=== PATIENT | female | born 1955 | race Caucasian/White ===

== ENCOUNTER 2017-07-19 14:22 | Emergency (ER) | payer BC ==
--- OUTSIDE RECORDS SUMMARY | 2017-07-19 14:25 | XMS | Clinical Summary ---
:1955 Author Organization [facility] Address [address] [place] [address] Phone Care Team Providers Name Role Phone , Primary Care Provider Unavailable Allergies Not on File Current Medications Not on file Active Problems Not on file Social History Tobacco Use Types Packs/Day Years Used Date Never Assessed Sex Assigned at Date Recorded Not on file Last Filed Vital Signs Not on file Plan of Treatment Not on file Results Not on filefrom Last 3 Months
[2017-07-19 16:32] LABS: #Basophils 0.1 thou/uL (0.0-0.2); #Eosinphils 0.2 thou/uL (0.0-0.7); #Lymphocytes 2.4 thou/uL (1.20-3.40); #Monocytes 0.6 thou/uL (0.11-0.59); #Neutrophils 7.1 thou/uL (1.40-6.50); %Basophils 0.5 % (0.0-1.0); %Eosinophils 1.7 % (0.0-10.0); %Lymphocytes 23.4 % (21.0-51.0); %Monocytes 6.1 % (0.0-10.0); Hematocrit 47.8 % (36.0-47.0); Mean Platelet Volume 8.1 fL (7.4-10.4); White Blood Cell (WBC) Count 10.4 thou/uL (4.8-10.8)
[2017-07-19] MEDS ORDERED: ISOVUE-370 76%-LOCM 1 ML ONE (16:47)
[2017-07-19 16:53] LABS: ALT (SGPT) 17 U/L (8-55); AST (SGOT) 24 U/L (5-34); Alkaline Phosphatase 110 U/L (40-150); Anion Gap 16 mmol/L (10-20); BUN (Urea Nitrogen) 13 mg/dL (9.8-20.1); Bilirubin, Total 0.9 mg/dL (0.2-1.2); Calc. Creatinine Clearance 0 mL/min (70-130); Calcium 9.9 mg/dL (7.8-10.44); Carbon Dioxide 27 mmol/L (22-29); Chloride 102 mmol/L (98-107); Estimated GFR-MDRD 74; Globulin 3.9 g/dL (2.4-3.5)
--- NOTE | 2017-07-19 19:21 | CT ---
CT OF THE FACE WITH IV CONTRAST: Indication: Left sided facial pain, concern for facial infection. Comparison: CT of the facial bones dated 02-02-14. FINDINGS: There is mild generalized cerebral atrophy. Visualized intracranial contents appear within normal li mits. There is a stable remote appearing lacunar infarct involving the left and right cerebellar hem ispheres. No drainable fluid collection is evident. The orbits are preserved. [employer] space, parotid, and s ubmandibular glands are normal appearing. There are moderate calcifications involving the right henry tid bulb. No enlarged lymph nodes are evident. Peripharyngeal fat is preserved. Paranasal sinuses ar e clear. Mastoid air cells appear clear. The previously seen nasal bone fracture demonstrates interv al healing. IMPRESSION: 1. No abnormality demonstrated. 2. Interval healing of the previously seen nasal bone fracture. POS: [facility]
== END 2017-07-19 18:10 | disposition home or self-care (01) ==
LOC: ERS 14:22
DX: R51 Headache (principal); R22.0 Localized swelling, mass and lump, head; I10 Essential (primary) hypertension; I25.10 Atherosclerotic heart disease of native coronary artery without angina pectoris; I25.2 Old myocardial infarction; E03.9 Hypothyroidism, unspecified; Z86.73 Personal history of transient ischemic attack (TIA), and cerebral infarction without residual deficits; Z79.899 Other long term (current) drug therapy
CPT/HCPCS: 70487; 80053; 85025

== ENCOUNTER 2017-07-23 08:17 | Outpatient (CLI) | payer BC ==
--- OUTSIDE RECORDS SUMMARY | 2017-07-23 08:19 | XMS | Clinical Summary ---
:1955 Author Organization [facility] Address [address] [place] [address] Phone Care Team Providers Name Role Phone [...]
--- NOTE | 2017-07-23 09:21 | RAD ---
3 VIEWS LUMBOSACRAL SPINE: Date: 07/23/17 COMPARISON: MRI lumbar spine dated 01/28/16. HISTORY: Lumbar spondylosis. FINDINGS: Lateral views of the lumbosacral spine were performed in neutral, flexion, and extension. There is v ertebroplasty cement in the L4 vertebral body. There is Grade I retrolisthesis of L4 on L5. The inte rvertebral discs are narrowed and moderate osteophytes are seen throughout the lumbar spine. Alignme nt is unchanged with flexion and extension. IMPRESSION: Moderate degenerative changes of the lumbar spine with unchanged alignment with bending. POS: [facility]
--- NOTE | 2017-07-23 10:36 | MRI ---
MRI LUMBAR SPINE WITHOUT CONTRAST: Date: 07/23/17 COMPARISON: 01/28/16, 06/21/13. TECHNIQUE: MRI lumbar spine is performed without intravenous Gadolinium administration. Multisequential, multip lanar imaging is performed. FINDINGS: There is an intrinsic T1 and T2 hypointensity at the L4 vertebral body level, similar to the prior e xamination suggesting stable vertebroplasty change. Remainder of the lumbar vertebra has appropriate T1 marrow signal intensity. Vertebral body height i s maintained. No fracture. No significant STIR hyperintensity to suggest vertebral body edema or lig amentous injury. 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 Symmetric signal intensity of the psoas m uscles. Conus medullaris terminates at the superior end plate of L1. The overall AP diameter of the central spinal canal is narrowed secondary to congenitally foreshorte maurice pedicles. T11-T12: Mild central canal stenosis. T12-L1: Minimal central canal stenosis. L1-L2: Stable loss of disc space height. There is a central/left subarticular disc protrusion, unchanged fr om the prior examination. There is stable mild central canal stenosis. Neural foramina are patent. L2-L3: There is stable loss of disc space height. There is generalized disc bulge with a central disc protr usion. There is moderate to severe central canal stenosis. Mild bilateral foraminal narrowing. L3-L4: There is stable minimal loss of vertebral body height. Generalized disc bulge, ligamentum flavum thi ckening, and facet hypertrophy result in mild to moderate central canal stenosis. Neural foramina ar e patent bilaterally. L4-L5: Generalized disc bulge, ligamentum flavum thickening, and facet hypertrophy result in mild central c anal stenosis. Minimal narrowing to both subarticular zones. Mass effect without obscuration of bila teral traversing L5 nerve roots. Mild to moderate right and mild left foraminal narrowing. L5-S1: Disc desiccation with moderate loss of disc space height. There is a generalized disc bulge with a l eft and right subarticular component. Mass effect and partial obscuration of bilateral traversing S1 nerve roots. Overall, there is mild central canal stenosis. Moderate right and left foraminal narro wing. IMPRESSION: Degenerative changes of the lumbar spine as above. POS: [facility]
== END 2017-07-23 08:18 | disposition home or self-care (01) ==
LOC: TBSIIMAG 08:17
PROVIDERS: ATTEND Anesthesiology Pain Medicine
DX: M47.816 Spondylosis without myelopathy or radiculopathy, lumbar region (principal)
CPT/HCPCS: 72100; 72148

== ENCOUNTER 2021-09-16 06:55 | Inpatient (IN) | payer OTHER ==
[2021-09-16] MEDS ORDERED: Ondansetron PF 4 MG/2 ML Vial ONE ×2 (07:24→09:08)
[2021-09-16] MEDS ORDERED: Morphine 4 MG/ML VIAL ONE ×2 (07:24→10:51)
[2021-09-16 08:21] LABS: #Basophils 0.1 thou/uL (0.0-0.2); #Eosinphils 0.1 thou/uL (0.0-0.7); #Lymphocytes 1.6 thou/uL (1.20-3.40); #Monocytes 1.1 thou/uL (0.11-0.59); #Neutrophils 11.4 thou/uL (1.40-6.50); %Basophils 0.4 % (0.0-1.0); %Eosinophils 0.7 % (0.0-10.0); %Lymphocytes 11.1 % (21.0-51.0); %Neutrophils 79.8 % (42.0-75.0); Hemoglobin 15.9 g/dL (12.0-16.0); Mean Corpuscular HGB CONC 30.5 g/dL (32.0-36.0); Mean Corpuscular Hemoglobin 29.7 pg (27.0-31.0); Mean Corpuscular Volume 97.2 fL (78.0-98.0); Platelet Count 412 thou/uL (130-400); RBC Distribution Width 12.8 % (11.5-14.5); Red Blood Cell (RBC) Count 5.35 mill/uL (4.20-5.40); White Blood Cell (WBC) Count 14.2 thou/uL (4.8-10.8)
[2021-09-16 08:36] LABS: ALT (SGPT) 9 U/L (8-55); AST (SGOT) 25 U/L (5-34); Albumin 2.8 g/dL (3.4-4.8); Alkaline Phosphatase 75 U/L (40-110); Anion Gap 19 mmol/L (10-20); BUN (Urea Nitrogen) 6 mg/dL (9.8-20.1); Bilirubin, Total 0.8 mg/dL (0.2-1.2); Calc. Creatinine Clearance 0 mL/min (70-130); Calcium 9.4 mg/dL (7.8-10.44); Carbon Dioxide 18 mmol/L (23-31); Chloride 103 mmol/L (98-107); Globulin 5.2 g/dL (2.4-3.5); Glucose 119 mg/dL (80-115); Lipase 8 U/L (8-78); Potassium 3.9 mmol/L (3.5-5.1); Sodium 136 mmol/L (136-145)
[2021-09-16 10:37] LABS: SARS-CoV-2 NAA Rapid Test Not Detected (NotDetected)
[2021-09-16] MEDS ORDERED: cefTRIAXone\\ROCEPHIN 2 GM VIAL ONE (10:51)
[2021-09-16] MEDS ORDERED: Iopamidol-370 76% 500 ML 1 ML ONE ×2 (10:53→10:55)
[2021-09-16 11:57] LABS: Lactic Acid 0.9 mmol/L (0.5-2.2)
[2021-09-16] MEDS ORDERED: Azithromycin 500 MG VIAL ONE (12:13)
[2021-09-16] MEDS ORDERED: Enoxaparin Sodium 100 MG/ML SYRINGE ONE (12:13)
[2021-09-16] MEDS ORDERED: FLU VACC QS2021-22(6MOS UP)/PF 60 MCG/0.5 ML SYRINGE IM ONE (15:30)
[2021-09-16] MEDS ORDERED: traMADol HCl 50 MG TAB PO PRN (20:14)
[2021-09-16] MEDS ORDERED: Ondansetron ODT 4 MG TAB PO PRN (20:15)
[2021-09-16] MEDS ORDERED: Acetaminophen 325 MG TAB PO PRN (20:15)
[2021-09-16] MEDS ORDERED: Senokot S 8.6-50 MG TAB PO PRN (20:15)
[2021-09-16] MEDS ORDERED: Ondansetron PF 4 MG/2 ML Vial IVP PRN (20:15)
[2021-09-16] MEDS ORDERED: Carvedilol 6.25 MG TAB PO SCH (21:00)
[2021-09-16] MEDS: Pregabalin 50 MG CAP PO SCH (21:04)
[2021-09-16] MEDS: Atorvastatin Calcium 40 MG TAB PO SCH (21:06)
[2021-09-16] MEDS: Morphine ER 15 MG TAB PO SCH (22:05)
[2021-09-16] MEDS ORDERED: Nitroglycerin 0.4 MG TAB (25 Tab Bottle) SL PRN (22:44)
[2021-09-16] MEDS ORDERED: Enoxaparin Sodium 100 MG/ML SYRINGE SC SCH (23:00)
[2021-09-16 23:28] LABS: Magnesium 1.4 mg/dL (1.6-2.6)
[2021-09-17] MEDS ORDERED: Magnesium Sulfate 4 GM in Sodium Chloride 0.9% 250 ML 250 ML IVPB SCH (01:00)
[2021-09-17 01:20] LABS: Troponin I Less than 0.010 ng/mL (< 0.028)
[2021-09-17 05:14] LABS: #Basophils 0.1 thou/uL (0.0-0.2); #Eosinphils 0.5 thou/uL (0.0-0.7); #Monocytes 1.2 thou/uL (0.11-0.59); #Neutrophils 4.9 thou/uL (1.40-6.50); %Basophils 0.6 % (0.0-1.0); %Eosinophils 4.9 % (0.0-10.0); %Monocytes 12.6 % (0.0-10.0); %Neutrophils 50.9 % (42.0-75.0); Hemoglobin 13.9 g/dL (12.0-16.0); Mean Corpuscular HGB CONC 31.6 g/dL (32.0-36.0); Mean Corpuscular Hemoglobin 30.2 pg (27.0-31.0); Mean Corpuscular Volume 95.5 fL (78.0-98.0); Mean Platelet Volume 9.2 fL (7.4-10.4); Platelet Count 403 thou/uL (130-400); RBC Distribution Width 12.7 % (11.5-14.5); Red Blood Cell (RBC) Count 4.61 mill/uL (4.20-5.40); White Blood Cell (WBC) Count 9.6 thou/uL (4.8-10.8)
[2021-09-17 05:33] LABS: Anion Gap 11 mmol/L (10-20); BUN (Urea Nitrogen) 6 mg/dL (9.8-20.1); Calc. Creatinine Clearance 127 mL/min (70-130); Carbon Dioxide 28 mmol/L (23-31); Chloride 102 mmol/L (98-107); Glucose 100 mg/dL (80-115); Potassium 3.4 mmol/L (3.5-5.1); Sodium 138 mmol/L (136-145)
[2021-09-17] MEDS: Morphine ER 15 MG TAB PO SCH ×3 (06:17→22:10)
[2021-09-17 06:32] LABS: Bilirubin Negative (Negative); Blood, Urine Negative (Negative); Clarity Clear (Clear); Glucose, Urine (Dipstick) Normal (Negative); Ketone, Urine Negative (Negative); Leukocyte 75 Leu/uL (Negative); Nitrite Negative (Negative); Protein, Urine (Dipstick) Negative (Neg-Trace); RBC/HPF 0-3 HPF (0-3); Specific Gravity, Urine 1.014 (1.002-1.036); Squamous Epithelial 0-3 HPF (0-3); Urobilinogen Normal mg/dL (Less than 2); pH, Urine 5.5 (5.0-9.0)
[2021-09-17] MEDS ORDERED: GUAIFENESIN SF SOLN 200 MG/10 ML UDCUP PO PRN (06:44)
[2021-09-17] MEDS ORDERED: Sodium Chloride 0.65% Nasal 44 ML BOT EA NARE PRN (06:44)
[2021-09-17] MEDS ORDERED: Cepastat Lozenges 1 LOZ PO PRN (06:44)
[2021-09-17] MEDS ORDERED: Calcium Carbonate 500 MG ChewTAB PO PRN (06:44)
[2021-09-17] MEDS ORDERED: Loperamide HCl 2 MG CAP PO PRN (06:44)
[2021-09-17] MEDS ORDERED: Loratadine 10 MG TAB PO PRN (06:44)
[2021-09-17] MEDS ORDERED: hydrALAZINE 20 MG/ML VIAL SLOW IVP PRN (06:44)
[2021-09-17] MEDS ORDERED: Hydrocerin (Eucerin) Cream 120 gm Jar TOP PRN (06:44)
[2021-09-17] MEDS ORDERED: Artificial Tear Sol 15 ML BOT EA EYE PRN (06:44)
[2021-09-17] MEDS ORDERED: Zolpidem Tartrate 5 MG TAB PO PRN (06:44)
[2021-09-17 06:54] LABS: Bacteria/HPF 1+ HPF (None Seen)
[2021-09-17] MEDS ORDERED: Potassium Chloride 20 MEQ TAB PO SCH (07:00)
[2021-09-17] MEDS: Enoxaparin Sodium 100 MG/ML SYRINGE SC SCH ×2 (08:45→20:46)
[2021-09-17] MEDS: Carvedilol 6.25 MG TAB PO SCH ×2 (08:46→17:55)
[2021-09-17] MEDS: Pregabalin 50 MG CAP PO SCH ×3 (08:46→20:45)
[2021-09-17] MEDS: Aspirin 81 mg Enteric Coated Tablet PO SCH (08:46)
[2021-09-17 10:03] VITALS: BMI 35.3
[2021-09-17] MEDS ORDERED: cefTRIAXone\\ROCEPHIN 1 GM in Sodium Chloride 0.9% 100 ML IVPB SCH (11:00)
[2021-09-17] MEDS: Atorvastatin Calcium 40 MG TAB PO SCH (20:46)
[2021-09-18 05:18] LABS: #Eosinphils 0.4 thou/uL (0.0-0.7); #Lymphocytes 2.5 thou/uL (1.20-3.40); #Neutrophils 3.8 thou/uL (1.40-6.50); %Basophils 0.2 % (0.0-1.0); %Eosinophils 5.5 % (0.0-10.0); %Lymphocytes 31.9 % (21.0-51.0); %Monocytes 12.9 % (0.0-10.0); %Neutrophils 49.6 % (42.0-75.0); Hemoglobin 13.3 g/dL (12.0-16.0); Mean Corpuscular HGB CONC 32.3 g/dL (32.0-36.0); Mean Platelet Volume 9.1 fL (7.4-10.4); Platelet Count 294 thou/uL (130-400); RBC Distribution Width 12.5 % (11.5-14.5); White Blood Cell (WBC) Count 7.7 thou/uL (4.8-10.8)
[2021-09-18 05:27] LABS: Anion Gap 10 mmol/L (10-20); BUN (Urea Nitrogen) 6 mg/dL (9.8-20.1); Calc. Creatinine Clearance 113 mL/min (70-130); Calcium 8.9 mg/dL (7.8-10.44); Carbon Dioxide 31 mmol/L (23-31); Chloride 102 mmol/L (98-107); Glucose 100 mg/dL (80-115); Phosphorus 4.4 mg/dL (2.3-4.7); Potassium 3.9 mmol/L (3.5-5.1); Sodium 139 mmol/L (136-145)
[2021-09-18] MEDS: Morphine ER 15 MG TAB PO SCH ×3 (05:59→21:11)
[2021-09-18] MEDS: Pregabalin 50 MG CAP PO SCH ×3 (08:46→20:10)
[2021-09-18] MEDS: Aspirin 81 mg Enteric Coated Tablet PO SCH (08:46)
[2021-09-18] MEDS: Carvedilol 6.25 MG TAB PO SCH ×2 (08:47→16:07)
[2021-09-18] MEDS: Enoxaparin Sodium 100 MG/ML SYRINGE SC SCH (08:47)
[2021-09-18] MEDS: AMPicillin 1 GM in Sodium Chloride 0.9% 100 ML IVPB SCH ×3 (11:45→23:01)
[2021-09-18] MEDS ORDERED: Communication Order-Pharmacy FS ONE (14:55)
[2021-09-18] MEDS: Atorvastatin Calcium 40 MG TAB PO SCH (20:10)
[2021-09-18] MEDS: Apixaban 5 MG TAB PO SCH (20:10)
[2021-09-18] MEDS: Senokot S 8.6-50 MG TAB PO SCH (20:11)
[2021-09-19] MEDS: Morphine ER 15 MG TAB PO SCH ×3 (06:19→21:46)
[2021-09-19] MEDS: AMPicillin 1 GM in Sodium Chloride 0.9% 100 ML IVPB SCH ×3 (06:19→17:18)
[2021-09-19] MEDS: Pregabalin 50 MG CAP PO SCH ×3 (07:43→21:47)
[2021-09-19] MEDS: Aspirin 81 mg Enteric Coated Tablet PO SCH (07:44)
[2021-09-19] MEDS: Senokot S 8.6-50 MG TAB PO SCH ×2 (07:44→21:46)
[2021-09-19] MEDS: Apixaban 5 MG TAB PO SCH ×2 (07:44→21:48)
[2021-09-19] MEDS: Carvedilol 6.25 MG TAB PO SCH ×2 (07:45→17:45)
[2021-09-19] MEDS: Atorvastatin Calcium 40 MG TAB PO SCH (21:48)
[2021-09-20] MEDS: AMPicillin 1 GM in Sodium Chloride 0.9% 100 ML IVPB SCH ×3 (01:25→13:18)
[2021-09-20] MEDS: Morphine ER 15 MG TAB PO SCH ×2 (05:37→14:29)
[2021-09-20] MEDS: Carvedilol 6.25 MG TAB PO SCH (08:47)
[2021-09-20] MEDS: Pregabalin 50 MG CAP PO SCH ×2 (08:47→14:29)
[2021-09-20] MEDS: Apixaban 5 MG TAB PO SCH (08:48)
[2021-09-20] MEDS: Senokot S 8.6-50 MG TAB PO SCH (08:48)
[2021-09-20] MEDS: Aspirin 81 mg Enteric Coated Tablet PO SCH (08:48)
[2021-09-20] MEDS ORDERED: Polyethylene Glycol 3350 17 GM Packet PO SCH (09:00)
[2021-09-20] MEDS ORDERED: Saccharomyces boulardii 250 MG CAP PO SCH (09:00)
[2021-09-20 13:17] VITALS: BP 134/63; TEMP 97.9
[2021-09-25] MEDS ORDERED: Apixaban 5 MG TAB PO SCH (21:00)
== END 2021-09-20 15:15 | DRG 176 ==
LOC: ERS 06:55 → ERHOLD 12:16 → 2NO 14:18
PROVIDERS: ADMIT Student in an Organized Health Care Education/Training Program; ATTEND Internal Medicine
DX: I26.99 Other pulmonary embolism without acute cor pulmonale (principal); N39.0 Urinary tract infection, site not specified; Z20.822 Contact with and (suspected) exposure to COVID-19; J98.11 Atelectasis; G89.4 Chronic pain syndrome; I25.10 Atherosclerotic heart disease of native coronary artery without angina pectoris; E03.9 Hypothyroidism, unspecified; E78.00 Pure hypercholesterolemia, unspecified; B95.2 Enterococcus as the cause of diseases classified elsewhere; E87.6 Hypokalemia; E83.42 Hypomagnesemia; I10 Essential (primary) hypertension; E66.9 Obesity, unspecified; K21.9 Gastro-esophageal reflux disease without esophagitis; Z95.1 Presence of aortocoronary bypass graft; Z86.73 Personal history of transient ischemic attack (TIA), and cerebral infarction without residual deficits; Z87.01 Personal history of pneumonia (recurrent); Z74.01 Bed confinement status; Z91.013 Allergy to seafood; Z91.048 Other nonmedicinal substance allergy status; Z68.35 Body mass index [BMI] 35.0-35.9, adult
CPT/HCPCS: 36415; 71275; 74177; 80048; 80053; 81001; 83605; 83690; 83735; 84100; 84484; 85025; 87040; 87077; 87086; 87186; 93005; 93010; 93306; 96365; 96366; 96367; 96372; 96375; 96376; J0290; J0456; J0696; J1650; J2270; J2405; J3475; J3490; J7050; Q9967; U0002

== ENCOUNTER 2022-06-09 20:57 | Emergency (ER) | payer MEDICARE ==
[2022-06-09 22:24] LABS: #Eosinphils 0.1 thou/uL (0.0-0.7); #Lymphocytes 0.9 thou/uL (1.20-3.40); #Monocytes 0.9 thou/uL (0.11-0.59); %Basophils 0.3 % (0.0-1.0); %Eosinophils 0.5 % (0.0-10.0); %Monocytes 8.1 % (0.0-10.0); %Neutrophils 83.2 % (42.0-75.0); Hemoglobin 17.3 g/dL (12.0-16.0); Mean Corpuscular HGB CONC 32.9 g/dL (32.0-36.0); Mean Corpuscular Hemoglobin 31.1 pg (27.0-31.0); Mean Corpuscular Volume 94.7 fL (78.0-98.0); Mean Platelet Volume 10.7 fL (7.4-10.4); Platelet Count 173 thou/uL (130-400); RBC Distribution Width 12.2 % (11.5-14.5); Red Blood Cell (RBC) Count 5.56 mill/uL (4.20-5.40); White Blood Cell (WBC) Count 10.8 thou/uL (4.8-10.8)
[2022-06-09] MEDS ORDERED: Amlodipine 5 MG TAB ONE (22:30)
[2022-06-09] MEDS ORDERED: Dexamethasone 4 MG TAB ONE (22:30)
[2022-06-09 22:49] LABS: ALT (SGPT) 13 U/L (8-55); AST (SGOT) 23 U/L (5-34); Albumin 3.8 g/dL (3.4-4.8); Alkaline Phosphatase 89 U/L (40-110); Anion Gap 20 mmol/L (10-20); BUN (Urea Nitrogen) 10 mg/dL (9.8-20.1); Bilirubin, Total 0.9 mg/dL (0.2-1.2); Calc. Creatinine Clearance 0 mL/min (70-130); Calcium 9.1 mg/dL (7.8-10.44); Carbon Dioxide 23 mmol/L (23-31); Chloride 102 mmol/L (98-107); Estimated GFR 46; Globulin 3.2 g/dL (2.4-3.5); Glucose 112 mg/dL (80-115); Sodium 142 mmol/L (136-145)
[2022-06-09 22:54] LABS: Potassium 2.9 mmol/L (3.5-5.1)
[2022-06-09] MEDS ORDERED: Potassium Chloride 20 MEQ TAB ONE (23:02)
== END 2022-06-10 00:55 | disposition home or self-care (01) ==
LOC: ERS 20:57
DX: J06.9 Acute upper respiratory infection, unspecified (principal); I10 Essential (primary) hypertension; I25.10 Atherosclerotic heart disease of native coronary artery without angina pectoris; I25.2 Old myocardial infarction; E03.9 Hypothyroidism, unspecified; Z86.73 Personal history of transient ischemic attack (TIA), and cerebral infarction without residual deficits; Z79.899 Other long term (current) drug therapy; Z79.82 Long term (current) use of aspirin
CPT/HCPCS: 36415; 71045; 80053; 85025; 99285; J8540

== ENCOUNTER 2022-06-19 19:48 | Inpatient (IN) | payer MEDICARE ==
[2022-06-19] MEDS ORDERED: Morphine 2 MG/ML VIAL ONE (20:37)
[2022-06-19] MEDS ORDERED: Ondansetron PF 4 MG/2 ML Vial ONE (20:37)
[2022-06-19 21:11] LABS: #Eosinphils 0.1 thou/uL (0.0-0.7); #Lymphocytes 2.8 thou/uL (1.20-3.40); #Monocytes 1.4 thou/uL (0.11-0.59); #Neutrophils 12.6 thou/uL (1.40-6.50); %Basophils 0.2 % (0.0-1.0); %Eosinophils 0.6 % (0.0-10.0); %Lymphocytes 16.8 % (21.0-51.0); %Neutrophils 74.5 % (42.0-75.0); Hemoglobin 17.1 g/dL (12.0-16.0); Mean Corpuscular Hemoglobin 31.6 pg (27.0-31.0); Mean Platelet Volume 9.3 fL (7.4-10.4); Platelet Count 238 thou/uL (130-400); White Blood Cell (WBC) Count 16.9 thou/uL (4.8-10.8)
[2022-06-19 21:24] LABS: ALT (SGPT) 18 U/L (8-55); AST (SGOT) 21 U/L (5-34); Albumin 3.6 g/dL (3.4-4.8); Alkaline Phosphatase 80 U/L (40-110); Anion Gap 15 mmol/L (10-20); BUN (Urea Nitrogen) 16 mg/dL (9.8-20.1); Bilirubin, Total 2.1 mg/dL (0.2-1.2); Calc. Creatinine Clearance 0 mL/min (70-130); Calcium 9.3 mg/dL (7.8-10.44); Carbon Dioxide 28 mmol/L (23-31); Chloride 104 mmol/L (98-107); Estimated GFR 74; Globulin 3.6 g/dL (2.4-3.5); Glucose 91 mg/dL (80-115); Lipase 9 U/L (8-78); Potassium 3.1 mmol/L (3.5-5.1); Protein, Total 7.2 g/dL (5.8-8.1); Sodium 144 mmol/L (136-145)
[2022-06-19] MEDS ORDERED: Vancomycin 1 GM/200 ML BAG ONE (22:15)
[2022-06-19] MEDS ORDERED: metroNIDAZOLE 500 MG/100 ML BAG ONE (22:16)
[2022-06-19] MEDS ORDERED: Potassium Chloride 20 MEQ TAB PO SCH (22:30)
[2022-06-20 00:33] VITALS: BMI 29.5
[2022-06-20 02:43] LABS: SARS-CoV-2 NAA Rapid Test DETECTED (NotDetected)
[2022-06-20] MEDS ORDERED: Ondansetron PF 4 MG/2 ML Vial IVP PRN (03:21)
[2022-06-20] MEDS ORDERED: Senokot S 8.6-50 MG TAB PO PRN (03:21)
[2022-06-20] MEDS ORDERED: Acetaminophen 650 MG Suppository PR PRN (03:24)
[2022-06-20] MEDS ORDERED: Albuterol 200 PUFF (6.7GM INHALER) INH PRN (03:24)
[2022-06-20] MEDS ORDERED: Benzonatate 100 MG CAP PO PRN (03:24)
[2022-06-20] MEDS ORDERED: Acetaminophen 325 MG TAB PO PRN (03:24)
[2022-06-20] MEDS: Sodium Chloride 0.9% 1,000 ML IV SCH ×2 (04:07→20:58)
[2022-06-20 05:26] LABS: #Eosinphils 0.2 thou/uL (0.0-0.7); #Lymphocytes 3.2 thou/uL (1.20-3.40); #Monocytes 1.3 thou/uL (0.11-0.59); #Neutrophils 10.8 thou/uL (1.40-6.50); %Basophils 0.1 % (0.0-1.0); %Eosinophils 1.3 % (0.0-10.0); %Lymphocytes 20.7 % (21.0-51.0); %Monocytes 8.1 % (0.0-10.0); %Neutrophils 69.8 % (42.0-75.0); Hemoglobin 14.6 g/dL (12.0-16.0); Mean Corpuscular HGB CONC 33.2 g/dL (32.0-36.0); Mean Corpuscular Hemoglobin 31.1 pg (27.0-31.0); Mean Corpuscular Volume 93.7 fL (78.0-98.0); Mean Platelet Volume 9.2 fL (7.4-10.4); Platelet Count 194 thou/uL (130-400); Red Blood Cell (RBC) Count 4.68 mill/uL (4.20-5.40); White Blood Cell (WBC) Count 15.5 thou/uL (4.8-10.8)
[2022-06-20 05:52] LABS: Anion Gap 12 mmol/L (10-20); BUN (Urea Nitrogen) 13 mg/dL (9.8-20.1); Calc. Creatinine Clearance 100 mL/min (70-130); Calcium 8.4 mg/dL (7.8-10.44); Carbon Dioxide 27 mmol/L (23-31); Chloride 104 mmol/L (98-107); Estimated GFR 84; Glucose 85 mg/dL (80-115); Potassium 3.3 mmol/L (3.5-5.1); Sodium 140 mmol/L (136-145)
[2022-06-20] MEDS ORDERED: metroNIDAZOLE 500 MG in Premix Bag 1 BAG IVPB SCH (06:00)
[2022-06-20] MEDS: Morphine ER 15 MG TAB PO SCH ×3 (06:37→20:58)
[2022-06-20] MEDS: Vancomycin 25 MG/ML Oral SOLN PO SCH ×3 (06:38→22:22)
[2022-06-20] MEDS ORDERED: Electrolyte Replacement Protocol FS PRN (08:15)
[2022-06-20] MEDS ORDERED: Potassium Chloride 20 MEQ TAB PO SCH (08:30)
[2022-06-20 08:35] LABS: Magnesium 1.6 mg/dL (1.6-2.6)
[2022-06-20] MEDS ORDERED: Magnesium 2 GM/50 ML(in water) 2 GM in Premix Bag 1 BAG IVPB SCH (09:00)
[2022-06-20] MEDS: Carvedilol 6.25 MG TAB PO SCH ×2 (10:38→16:00)
[2022-06-20] MEDS: Ascorbic Acid 500 mg Chewable Tablet PO SCH (10:39)
[2022-06-20] MEDS: Saccharomyces boulardii 250 MG CAP PO SCH (10:39)
[2022-06-20] MEDS: Zinc Sulfate 220 MG CAP PO SCH (10:39)
[2022-06-20] MEDS: Pregabalin 50 MG CAP PO SCH ×3 (10:39→20:58)
[2022-06-20] MEDS: Aspirin 81 mg Enteric Coated Tablet PO SCH (10:40)
[2022-06-20] MEDS: Enoxaparin Sodium 40 MG/0.4 ML SYRINGE SC SCH (10:40)
[2022-06-20] MEDS: Cholecalciferol (Vitamin D3) 400 UNITS TAB PO SCH (10:42)
[2022-06-20] MEDS: Acetaminophen 325 MG TAB PO PRN (15:59)
[2022-06-20] MEDS: Atorvastatin Calcium 40 MG TAB PO SCH (20:59)
[2022-06-21] MEDS: Acetaminophen 325 MG TAB PO PRN (01:51)
[2022-06-21] MEDS: traMADol HCl 50 MG TAB PO PRN (01:52)
[2022-06-21] MEDS: Vancomycin 25 MG/ML Oral SOLN PO SCH ×4 (03:31→17:53)
[2022-06-21] MEDS: Morphine ER 15 MG TAB PO SCH ×3 (06:32→21:05)
[2022-06-21 06:39] LABS: Band 2 % (5-11); Eosinophils 2 % (0-10); Lymphocytes 21 % (21-51); MDiff Complete? YES; Mean Corpuscular HGB CONC 32.7 g/dL (32.0-36.0); Mean Corpuscular Hemoglobin 31.8 pg (27.0-31.0); Mean Corpuscular Volume 97.4 fL (78.0-98.0); Mean Platelet Volume 11.1 fL (7.4-10.4); Monocytes 7 % (0-10); Neutrophil 68 % (42-75); Platelet Count 157 thou/uL (130-400); RBC Distribution Width 12.5 % (11.5-14.5); White Blood Cell (WBC) Count 9.3 thou/uL (4.8-10.8)
[2022-06-21 07:06] LABS: AST (SGOT) 37 U/L (5-34); Albumin 2.9 g/dL (3.4-4.8); Anion Gap 16 mmol/L (10-20); BUN (Urea Nitrogen) 10 mg/dL (9.8-20.1); Bilirubin, Total 0.9 mg/dL (0.2-1.2); Calc. Creatinine Clearance 84 mL/min (70-130); Calcium 8.3 mg/dL (7.8-10.44); Carbon Dioxide 18 mmol/L (23-31); Chloride 110 mmol/L (98-107); Estimated GFR 68; Globulin 3.2 g/dL (2.4-3.5); Glucose 69 mg/dL (80-115); Phosphorus 2.6 mg/dL (2.3-4.7); Potassium 3.9 mmol/L (3.5-5.1); Protein, Total 6.1 g/dL (5.8-8.1); Sodium 140 mmol/L (136-145)
[2022-06-21 07:08] LABS: ALT (SGPT) 28 U/L (8-55)
[2022-06-21] MEDS ORDERED: Magnesium 2 GM/50 ML(in water) 2 GM in Premix Bag 1 BAG IVPB SCH (07:30)
[2022-06-21 08:03] LABS: Alkaline Phosphatase 71 U/L (40-110)
[2022-06-21] MEDS: Pregabalin 50 MG CAP PO SCH ×3 (08:37→21:04)
[2022-06-21] MEDS: Carvedilol 6.25 MG TAB PO SCH ×2 (08:37→17:52)
[2022-06-21] MEDS: Enoxaparin Sodium 40 MG/0.4 ML SYRINGE SC SCH (08:37)
[2022-06-21] MEDS: Ascorbic Acid 500 mg Chewable Tablet PO SCH (08:37)
[2022-06-21] MEDS: Zinc Sulfate 220 MG CAP PO SCH (08:38)
[2022-06-21] MEDS: Cholecalciferol (Vitamin D3) 400 UNITS TAB PO SCH (08:38)
[2022-06-21] MEDS: Aspirin 81 mg Enteric Coated Tablet PO SCH (08:38)
[2022-06-21] MEDS: Saccharomyces boulardii 250 MG CAP PO SCH (08:38)
[2022-06-21] MEDS: Sodium Bicarbonate Tab 325 MG TAB PO SCH ×2 (12:38→21:05)
[2022-06-21] MEDS: Atorvastatin Calcium 40 MG TAB PO SCH (21:05)
[2022-06-22] MEDS: Vancomycin 25 MG/ML Oral SOLN PO SCH ×5 (00:07→23:32)
[2022-06-22] MEDS: Morphine ER 15 MG TAB PO SCH ×3 (05:17→21:21)
[2022-06-22 06:32] LABS: Magnesium 2.1 mg/dL (1.6-2.6)
[2022-06-22] MEDS: traMADol HCl 50 MG TAB PO PRN (09:26)
[2022-06-22] MEDS: Sodium Bicarbonate Tab 325 MG TAB PO SCH ×2 (09:28→21:19)
[2022-06-22] MEDS: Pregabalin 50 MG CAP PO SCH ×3 (09:28→21:19)
[2022-06-22] MEDS: Ascorbic Acid 500 mg Chewable Tablet PO SCH (09:29)
[2022-06-22] MEDS: Aspirin 81 mg Enteric Coated Tablet PO SCH (09:29)
[2022-06-22] MEDS: Cholecalciferol (Vitamin D3) 400 UNITS TAB PO SCH (09:29)
[2022-06-22] MEDS: Zinc Sulfate 220 MG CAP PO SCH (09:29)
[2022-06-22] MEDS: Saccharomyces boulardii 250 MG CAP PO SCH (09:30)
[2022-06-22] MEDS: Carvedilol 6.25 MG TAB PO SCH ×2 (09:30→17:02)
[2022-06-22] MEDS: Enoxaparin Sodium 40 MG/0.4 ML SYRINGE SC SCH (12:48)
[2022-06-22 19:54] LABS: Campy jejuni + coli by PCR Negative (Negative); STEC Shiga Toxin 1+2 Negative (Negative); Salmonella spp. by PCR Negative (Negative); Shigella spp + EIEC by PCR Negative (Negative)
[2022-06-22] MEDS: Atorvastatin Calcium 40 MG TAB PO SCH (21:18)
[2022-06-23] MEDS: Morphine ER 15 MG TAB PO SCH (05:28)
[2022-06-23] MEDS: Vancomycin 25 MG/ML Oral SOLN PO SCH (05:30)
[2022-06-23] MEDS: Sodium Bicarbonate Tab 325 MG TAB PO SCH (08:06)
[2022-06-23] MEDS: Enoxaparin Sodium 40 MG/0.4 ML SYRINGE SC SCH (08:06)
[2022-06-23] MEDS: Zinc Sulfate 220 MG CAP PO SCH (08:06)
[2022-06-23] MEDS: Aspirin 81 mg Enteric Coated Tablet PO SCH (08:06)
[2022-06-23] MEDS: Ascorbic Acid 500 mg Chewable Tablet PO SCH (08:07)
[2022-06-23] MEDS: Pregabalin 50 MG CAP PO SCH (08:07)
[2022-06-23] MEDS: Saccharomyces boulardii 250 MG CAP PO SCH (08:08)
[2022-06-23] MEDS: Carvedilol 6.25 MG TAB PO SCH (08:08)
[2022-06-23 08:09] VITALS: BP 133/64
[2022-06-23] MEDS: Cholecalciferol (Vitamin D3) 400 UNITS TAB PO SCH (08:09)
[2022-06-23 09:27] VITALS: TEMP 98.3
== END 2022-06-23 11:41 | disposition home or self-care (01) | DRG 391 ==
LOC: ERS 19:48 → SJJU 22:32
PROVIDERS: ADMIT Family Medicine; ATTEND Family Medicine
PROC: 8E0ZXY6 Isolation (ICD-10-PCS; principal; 2022-06-20)
DX: K52.9 Noninfective gastroenteritis and colitis, unspecified (principal); U07.1 COVID-19; I69.351 Hemiplegia and hemiparesis following cerebral infarction affecting right dominant side; A08.39 Other viral enteritis; E87.6 Hypokalemia; E83.42 Hypomagnesemia; I10 Essential (primary) hypertension; K21.9 Gastro-esophageal reflux disease without esophagitis; G89.4 Chronic pain syndrome; I25.10 Atherosclerotic heart disease of native coronary artery without angina pectoris; E78.00 Pure hypercholesterolemia, unspecified; R10.9 Unspecified abdominal pain; Z91.013 Allergy to seafood; Z91.09 Other allergy status, other than to drugs and biological substances; Z79.899 Other long term (current) drug therapy; Z79.82 Long term (current) use of aspirin; Z95.1 Presence of aortocoronary bypass graft; Z90.49 Acquired absence of other specified parts of digestive tract
CPT/HCPCS: 36415; 36416; 71045; 74176; 80048; 80053; 82728; 83605; 83630; 83690; 83735; 84100; 84145; 85025; 85379; 86140; 87324; 87449; 87505; 93005; 96361; 96365; 96368; 96375; J1650; J2270; J2405; J3370; J3475; J7050; U0002

== ENCOUNTER 2022-09-11 01:11 | Inpatient (IN) | payer MEDICARE ==
[2022-09-11] MEDS ORDERED: Ondansetron PF 4 MG/2 ML Vial ONE ×3 (02:39→06:36)
[2022-09-11 02:43] LABS: #Basophils 0.1 thou/uL (0.0-0.2); #Eosinphils 0.1 thou/uL (0.0-0.7); #Lymphocytes 2.4 thou/uL (1.20-3.40); #Monocytes 1.2 thou/uL (0.11-0.59); #Neutrophils 12.6 thou/uL (1.40-6.50); %Basophils 0.3 % (0.0-1.0); %Eosinophils 0.7 % (0.0-10.0); %Lymphocytes 14.6 % (21.0-51.0); %Monocytes 7.2 % (0.0-10.0); %Neutrophils 77.2 % (42.0-75.0); Hemoglobin 16.9 g/dL (12.0-16.0); Mean Corpuscular HGB CONC 31.8 g/dL (32.0-36.0); Mean Corpuscular Hemoglobin 29.7 pg (27.0-31.0); Mean Corpuscular Volume 93.3 fl (78.0-98.0); Mean Platelet Volume 10.2 fL (7.4-10.4); Platelet Count 450 10x3/uL (130-400); RBC Distribution Width 13.3 % (11.5-14.5); Red Blood Cell (RBC) Count 5.69 mill/uL (4.20-5.40); White Blood Cell (WBC) Count 16.3 10x3/uL (4.8-10.8)
[2022-09-11 03:01] LABS: ALT (SGPT) 7 U/L (8-55); AST (SGOT) 22 U/L (5-34); Albumin 3.5 g/dL (3.4-4.8); Alkaline Phosphatase 85 U/L (40-110); Anion Gap 17 mmol/L (10-20); BUN (Urea Nitrogen) 9 mg/dL (9.8-20.1); Calc. Creatinine Clearance 0 mL/min (70-130); Calcium 9.8 mg/dL (7.8-10.44); Carbon Dioxide 31 mmol/L (23-31); Chloride 94 mmol/L (98-107); Estimated GFR 63; Globulin 4.9 g/dL (2.4-3.5); Glucose 132 mg/dL (80-115); Lipase 14 U/L (8-78); Potassium 2.7 mmol/L (3.5-5.1); Protein, Total 8.4 g/dL (5.8-8.1); Sodium 139 mmol/L (136-145)
[2022-09-11] MEDS ORDERED: Potassium Chloride 20 MEQ TAB ONE (03:16)
[2022-09-11 04:39] LABS: Bacteria/HPF 4+ HPF (None Seen); Bilirubin Negative (Negative); Blood, Urine 1+ (Negative); Clarity Turbid (Clear); Glucose, Urine (Dipstick) Normal (Negative); Ketone, Urine Trace mg/dL (Negative); Leukocyte 500 Leu/uL (Negative); Nitrite Negative (Negative); Protein, Urine (Dipstick) 50 mg/dL (Neg-Trace); Specific Gravity, Urine 1.046 (1.002-1.036); Urobilinogen Normal mg/dL (Less than 2); WBC/HPF Greater than 50 HPF (0-3)
[2022-09-11] MEDS ORDERED: Morphine 4 MG/ML VIAL ONE (04:39)
[2022-09-11] MEDS ORDERED: Piperacillin/Tazobactam 3.375 GM VIAL ONE (04:39)
[2022-09-11 05:46] LABS: SARS-CoV-2 NAA Rapid Test Not Detected (NotDetected)
[2022-09-11] MEDS ORDERED: fentaNYL PF 100 MCG/2 ML SYRINGE ONE ×3 (05:56→09:35)
[2022-09-11] MEDS ORDERED: Bupivacaine/Epinephrine 0.25% 30 ML VIAL ONE (06:14)
[2022-09-11] MEDS ORDERED: PHENYLEPHRINE-NS 100 MCG/ML 10 ML SYRINGE ONE (06:36)
[2022-09-11] MEDS ORDERED: NEOSTIGMINE 3 MG/3 ML SYR 3 MG/3 ML SYRINGE ONE (06:36)
[2022-09-11] MEDS ORDERED: Glycopyrrolate 0.2 MG/ML 5 ML SYRINGE ONE (06:36)
[2022-09-11] MEDS ORDERED: PROPOFOL 200 MG/20 ML VIAL ONE (06:36)
[2022-09-11] MEDS ORDERED: Rocuronium Bromide 10 MG/ML (10ML VIAL) ONE (06:36)
[2022-09-11] MEDS ORDERED: Ketorolac Tromethamine 30 MG/ML VIAL ONE (06:36)
[2022-09-11] MEDS ORDERED: Metoprolol Tartrate 5 MG/5 ML VIAL ONE ×2 (06:36→09:03)
[2022-09-11] MEDS ORDERED: diphenhydrAMINE 25 MG CAP PO PRN (08:34)
[2022-09-11] MEDS ORDERED: diphenhydrAMINE 50 MG/ML VIAL IM PRN (08:34)
[2022-09-11] MEDS ORDERED: diphenhydrAMINE 50 MG/ML VIAL IVP PRN (08:34)
[2022-09-11] MEDS ORDERED: Ondansetron PF 4 MG/2 ML Vial IVP PRN ×2 (08:34→11:10)
[2022-09-11] MEDS ORDERED: Naloxone HCl 0.4 mg/ml Vial IV PRN (08:34)
[2022-09-11] MEDS ORDERED: FENTANYL 500 MCG/10 ML VIAL 2,000 MCG in Sodium Chloride 0.9% 60 ML IV PRN (08:34)
[2022-09-11] MEDS ORDERED: Zolpidem Tartrate 5 MG TAB PO PRN (08:34)
[2022-09-11] MEDS ORDERED: Promethazine HCl 25 MG/ML VIAL IM PRN ×3 (08:34→11:10)
[2022-09-11] MEDS ORDERED: Promethazine HCl 25 MG/ML VIAL IVPB PRN (08:39)
[2022-09-11] MEDS ORDERED: Ondansetron HCl/PF 4 MG/2 ML Vial IVP PRN (08:39)
[2022-09-11] MEDS ORDERED: Communication Order-Pharmacy FS SCH (08:45)
[2022-09-11] MEDS ORDERED: SUGAMMADEX SODIUM 200 MG/2 ML VIAL ONE (09:09)
[2022-09-11] MEDS ORDERED: Iopamidol-370 76% 500 ML 1 ML ONE (10:32)
[2022-09-11] MEDS ORDERED: Morphine 4 MG/ML VIAL SLOW IVP PRN ×2 (11:10→12:08)
[2022-09-11] MEDS ORDERED: hydrALAZINE 20 MG/ML VIAL SLOW IVP PRN (11:10)
[2022-09-11 13:45] VITALS: BMI 31.3
[2022-09-11] MEDS: D5 1/2 NS w/20 mEq KCL 1,000 ML IV SCH ×2 (13:45→17:29)
[2022-09-11] MEDS: Ketorolac Tromethamine 30 MG/ML VIAL IVP SCH ×2 (13:47→17:27)
[2022-09-11] MEDS: Piperacillin/Tazobactam 3.375 GM in Sodium Chloride 0.9% 100 ML IVPB SCH ×2 (13:47→20:47)
[2022-09-11] MEDS ORDERED: FLU VACC QS2022-23(65YR UP)/PF 240 MCG/0.7 ML SYRINGE IM ONE (14:30)
[2022-09-11] MEDS ORDERED: Sodium Chloride 0.9% 500 ML IVPB SCH (18:15)
[2022-09-11 18:20] LABS: Anion Gap 15 mmol/L (10-20); BUN (Urea Nitrogen) 8 mg/dL (9.8-20.1); Calc. Creatinine Clearance 91 mL/min (70-130); Calcium 7.2 mg/dL (7.8-10.44); Carbon Dioxide 18 mmol/L (23-31); Chloride 110 mmol/L (98-107); Estimated GFR 73; Glucose 188 mg/dL (80-115); Potassium 3.8 mmol/L (3.5-5.1); Sodium 139 mmol/L (136-145)
[2022-09-11] MEDS: Pantoprazole 40 MG VIAL IVP SCH (20:47)
[2022-09-11] MEDS: Enoxaparin Sodium 40 MG/0.4 ML SYRINGE SC SCH (20:47)
[2022-09-11] MEDS ORDERED: Famotidine/PF 20 mg/2ml Vial SLOW IVP SCH (21:00)
[2022-09-11] MEDS ORDERED: Famotidine 20 MG TAB PO SCH (21:00)
[2022-09-12] MEDS: Ketorolac Tromethamine 30 MG/ML VIAL IVP SCH ×4 (00:46→18:35)
[2022-09-12] MEDS: D5 1/2 NS w/20 mEq KCL 1,000 ML IV SCH (04:45)
[2022-09-12] MEDS: Piperacillin/Tazobactam 3.375 GM in Sodium Chloride 0.9% 100 ML IVPB SCH ×3 (05:36→20:43)
[2022-09-12 05:53] LABS: #Eosinphils 0.1 thou/uL (0.0-0.7); #Lymphocytes 1.8 thou/uL (1.20-3.40); #Monocytes 1.1 thou/uL (0.11-0.59); #Neutrophils 16.9 thou/uL (1.40-6.50); %Basophils 0.1 % (0.0-1.0); %Eosinophils 0.3 % (0.0-10.0); %Monocytes 5.6 % (0.0-10.0); Hemoglobin 13.6 g/dL (12.0-16.0); Mean Corpuscular HGB CONC 31.5 g/dL (32.0-36.0); Mean Corpuscular Hemoglobin 30.4 pg (27.0-31.0); Mean Corpuscular Volume 96.6 fl (78.0-98.0); Mean Platelet Volume 10.3 fL (7.4-10.4); Platelet Count 286 10x3/uL (130-400); RBC Distribution Width 13.6 % (11.5-14.5); Red Blood Cell (RBC) Count 4.46 mill/uL (4.20-5.40); White Blood Cell (WBC) Count 19.9 10x3/uL (4.8-10.8)
[2022-09-12 06:14] LABS: Anion Gap 13 mmol/L (10-20); BUN (Urea Nitrogen) 9 mg/dL (9.8-20.1); Calc. Creatinine Clearance 83 mL/min (70-130); Carbon Dioxide 18 mmol/L (23-31); Chloride 111 mmol/L (98-107); Estimated GFR 65; Glucose 108 mg/dL (80-115); Magnesium 1.2 mg/dL (1.6-2.6); Potassium 4.1 mmol/L (3.5-5.1); Sodium 138 mmol/L (136-145)
[2022-09-12] MEDS: Pantoprazole 40 MG VIAL IVP SCH ×2 (09:27→20:42)
[2022-09-12] MEDS ORDERED: Magnesium Sulfate In Water 4 GM in Premix Bag 1 BAG IVPB SCH (11:00)
[2022-09-12] MEDS: D5 LR w/20 mEq KCL 1,000 ML IV SCH ×2 (13:39→22:57)
[2022-09-12] MEDS ORDERED: FENTANYL 500 MCG/10 ML VIAL 2,000 MCG in Sodium Chloride 0.9% 60 ML IV PRN (14:23)
[2022-09-12] MEDS: Enoxaparin Sodium 40 MG/0.4 ML SYRINGE SC SCH (20:43)
[2022-09-13] MEDS: Ketorolac Tromethamine 30 MG/ML VIAL IVP SCH ×5 (00:23→23:16)
[2022-09-13] MEDS: Piperacillin/Tazobactam 3.375 GM in Sodium Chloride 0.9% 100 ML IVPB SCH ×3 (05:35→20:10)
[2022-09-13 06:38] LABS: #Eosinphils 0.4 thou/uL (0.0-0.7); #Lymphocytes 1.6 thou/uL (1.20-3.40); #Monocytes 0.8 thou/uL (0.11-0.59); #Neutrophils 7.6 thou/uL (1.40-6.50); %Basophils 0.4 % (0.0-1.0); %Eosinophils 4.2 % (0.0-10.0); %Monocytes 7.4 % (0.0-10.0); Hemoglobin 12.3 g/dL (12.0-16.0); Mean Corpuscular HGB CONC 31.5 g/dL (32.0-36.0); Mean Corpuscular Hemoglobin 30.8 pg (27.0-31.0); Mean Corpuscular Volume 97.7 fl (78.0-98.0); Mean Platelet Volume 10.5 fL (7.4-10.4); Platelet Count 196 10x3/uL (130-400); RBC Distribution Width 13.5 % (11.5-14.5); Red Blood Cell (RBC) Count 3.99 mill/uL (4.20-5.40); White Blood Cell (WBC) Count 10.4 10x3/uL (4.8-10.8)
[2022-09-13 07:00] LABS: Anion Gap 11 mmol/L (10-20); BUN (Urea Nitrogen) 8 mg/dL (9.8-20.1); Calc. Creatinine Clearance 94 mL/min (70-130); Calcium 7.4 mg/dL (7.8-10.44); Carbon Dioxide 19 mmol/L (23-31); Chloride 114 mmol/L (98-107); Estimated GFR 76; Glucose 112 mg/dL (80-115); Sodium 140 mmol/L (136-145)
[2022-09-13 08:10] LABS: Phosphorus 1.9 mg/dL (2.3-4.7)
[2022-09-13 08:11] LABS: Magnesium 1.9 mg/dL (1.6-2.6)
[2022-09-13] MEDS: Fluconazole 100 MG TAB PO SCH (08:55)
[2022-09-13] MEDS: D5 LR w/20 mEq KCL 1,000 ML IV SCH ×2 (08:55→12:02)
[2022-09-13] MEDS: Pantoprazole 40 MG VIAL IVP SCH ×2 (08:56→20:10)
[2022-09-13] MEDS ORDERED: Potassium Phosphate 30 MMOL in Sodium Chloride 0.9% 250 ML 250 ML IVPB SCH (09:00)
[2022-09-13] MEDS ORDERED: Sodium Phosphate 30 MMOL in Sodium Chloride 0.9% 250 ML 250 ML IVPB SCH (12:00)
[2022-09-13] MEDS: Dextrose 5%-Lactated Ringers 1,000 ML IV SCH ×2 (16:17→20:24)
[2022-09-13] MEDS: Enoxaparin Sodium 40 MG/0.4 ML SYRINGE SC SCH (20:10)
[2022-09-13] MEDS: Famotidine/PF 20 mg/2ml Vial SLOW IVP SCH (20:29)
[2022-09-14] MEDS: Piperacillin/Tazobactam 3.375 GM in Sodium Chloride 0.9% 100 ML IVPB SCH ×3 (05:45→20:51)
[2022-09-14] MEDS: Ketorolac Tromethamine 30 MG/ML VIAL IVP SCH ×2 (05:46→13:37)
[2022-09-14] MEDS: Dextrose 5%-Lactated Ringers 1,000 ML IV SCH ×3 (05:48→16:39)
[2022-09-14 06:28] LABS: Anion Gap 10 mmol/L (10-20); BUN (Urea Nitrogen) 7 mg/dL (9.8-20.1); Calc. Creatinine Clearance 94 mL/min (70-130); Calcium 7.5 mg/dL (7.8-10.44); Carbon Dioxide 21 mmol/L (23-31); Chloride 116 mmol/L (98-107); Estimated GFR 76; Glucose 91 mg/dL (80-115); Phosphorus 2.7 mg/dL (2.3-4.7); Potassium 4.4 mmol/L (3.5-5.1); Sodium 143 mmol/L (136-145)
[2022-09-14 08:04] LABS: #Eosinphils 0.8 thou/uL (0.0-0.7); #Lymphocytes 1.6 thou/uL (1.20-3.40); #Monocytes 0.6 thou/uL (0.11-0.59); #Neutrophils 5.2 thou/uL (1.40-6.50); %Basophils 0.5 % (0.0-1.0); %Eosinophils 9.7 % (0.0-10.0); %Lymphocytes 19.5 % (21.0-51.0); %Monocytes 7.5 % (0.0-10.0); %Neutrophils 62.8 % (42.0-75.0); Hemoglobin 11.5 g/dL (12.0-16.0); Mean Corpuscular HGB CONC 32.5 g/dL (32.0-36.0); Mean Corpuscular Hemoglobin 31.6 pg (27.0-31.0); Mean Corpuscular Volume 97.4 fl (78.0-98.0); Mean Platelet Volume 11.1 fL (7.4-10.4); Platelet Count 164 10x3/uL (130-400); RBC Distribution Width 13.4 % (11.5-14.5); Red Blood Cell (RBC) Count 3.64 mill/uL (4.20-5.40); White Blood Cell (WBC) Count 8.3 10x3/uL (4.8-10.8)
[2022-09-14 08:20] LABS: Magnesium 1.6 mg/dL (1.6-2.6)
[2022-09-14] MEDS: Pantoprazole 40 MG VIAL IVP SCH ×2 (09:04→20:51)
[2022-09-14] MEDS: Famotidine/PF 20 mg/2ml Vial SLOW IVP SCH ×2 (09:04→20:51)
[2022-09-14] MEDS: Fluconazole 100 MG TAB PO SCH (09:04)
[2022-09-14] MEDS ORDERED: Magnesium Sulfate In Water 4 GM in Premix Bag 1 BAG IVPB SCH (10:00)
[2022-09-14] MEDS ORDERED: Ipratropium Bromide 2.5 ml Neb NEB SCH (10:30)
[2022-09-14] MEDS ORDERED: Activase 2 MG VIAL CATH SCH ×2 (11:00→14:45)
[2022-09-14] MEDS: Morphine ER 15 MG TAB PO SCH (20:50)
[2022-09-14] MEDS: Enoxaparin Sodium 40 MG/0.4 ML SYRINGE SC SCH (20:55)
[2022-09-14] MEDS: Morphine 4 MG/ML VIAL SLOW IVP PRN (20:55)
[2022-09-14] MEDS: traMADol HCl 50 MG TAB PO PRN (22:03)
[2022-09-15] MEDS: Piperacillin/Tazobactam 3.375 GM in Sodium Chloride 0.9% 100 ML IVPB SCH ×2 (04:40→12:02)
[2022-09-15] MEDS: Morphine ER 15 MG TAB PO SCH ×2 (04:41→13:05)
[2022-09-15] MEDS: Morphine 4 MG/ML VIAL SLOW IVP PRN ×2 (04:42→11:52)
[2022-09-15] MEDS: Dextrose 5%-Lactated Ringers 1,000 ML IV SCH (05:17)
[2022-09-15] MEDS: traMADol HCl 50 MG TAB PO PRN ×4 (05:18→23:39)
[2022-09-15] MEDS: Fluconazole 100 MG TAB PO SCH (08:12)
[2022-09-15] MEDS: Pantoprazole 40 MG VIAL IVP SCH (08:14)
[2022-09-15] MEDS: Famotidine/PF 20 mg/2ml Vial SLOW IVP SCH (08:14)
[2022-09-15] MEDS ORDERED: Dextrose 5%-Lactated Ringers 1,000 ML IV SCH (11:14)
[2022-09-15] MEDS ORDERED: Furosemide 20 MG TAB PO SCH (17:45)
[2022-09-15] MEDS ORDERED: Cepastat Lozenges 1 LOZ PO PRN (18:50)
[2022-09-15] MEDS ORDERED: Benzonatate 100 MG CAP PO PRN (18:50)
[2022-09-15] MEDS: guaiFENesin ER 600 MG TAB PO SCH (20:42)
[2022-09-15] MEDS: Enoxaparin Sodium 40 MG/0.4 ML SYRINGE SC SCH (20:43)
[2022-09-15] MEDS: Pregabalin 50 MG CAP PO SCH (20:43)
[2022-09-15] MEDS: Carvedilol 3.125 MG TAB PO SCH (20:43)
[2022-09-15] MEDS ORDERED: Atorvastatin Calcium 40 MG TAB PO SCH (21:00)
[2022-09-16] MEDS ORDERED: Acetaminophen 325 MG TAB PO PRN (01:45)
[2022-09-16] MEDS: Pregabalin 50 MG CAP PO SCH (08:17)
[2022-09-16] MEDS: Carvedilol 3.125 MG TAB PO SCH (08:17)
[2022-09-16] MEDS: guaiFENesin ER 600 MG TAB PO SCH (08:17)
[2022-09-16] MEDS: Fluconazole 100 MG TAB PO SCH (08:17)
[2022-09-16] MEDS: traMADol HCl 50 MG TAB PO PRN (08:25)
[2022-09-16 09:17] VITALS: BP 130/84; TEMP 98
== END 2022-09-16 11:20 | disposition home or self-care (01) | DRG 326 ==
LOC: ERS 01:11 → SURG B 13:42
PROVIDERS: ADMIT Specialist; ATTEND Specialist
PROC: 0DQ60ZZ Repair Stomach, Open Approach (ICD-10-PCS; principal; 2022-09-11)
PROC: 0D9600Z Drainage of Stomach with Drainage Device, Open Approach (ICD-10-PCS; 2022-09-11)
PROC: 02HV33Z Insertion of Infusion Device into Superior Vena Cava, Percutaneous Approach (ICD-10-PCS; 2022-09-11)
PROC: 0DJW4ZZ Inspection of Peritoneum, Percutaneous Endoscopic Approach (ICD-10-PCS; 2022-09-11)
DX: K25.5 Chronic or unspecified gastric ulcer with perforation (principal); K65.1 Peritoneal abscess; I69.351 Hemiplegia and hemiparesis following cerebral infarction affecting right dominant side; N39.0 Urinary tract infection, site not specified; Z20.822 Contact with and (suspected) exposure to COVID-19; M54.9 Dorsalgia, unspecified; I10 Essential (primary) hypertension; I25.10 Atherosclerotic heart disease of native coronary artery without angina pectoris; E78.00 Pure hypercholesterolemia, unspecified; E87.6 Hypokalemia; E83.42 Hypomagnesemia; B96.20 Unspecified Escherichia coli [E. coli] as the cause of diseases classified elsewhere; B96.1 Klebsiella pneumoniae [K. pneumoniae] as the cause of diseases classified elsewhere; G89.4 Chronic pain syndrome; E66.9 Obesity, unspecified; Z68.31 Body mass index [BMI] 31.0-31.9, adult; Z53.31 Laparoscopic surgical procedure converted to open procedure; Z87.01 Personal history of pneumonia (recurrent); Z95.1 Presence of aortocoronary bypass graft; Z79.899 Other long term (current) drug therapy; Z91.013 Allergy to seafood; Z91.09 Other allergy status, other than to drugs and biological substances; Z99.3 Dependence on wheelchair
CPT/HCPCS: 36415; 71045; 74177; 80048; 80053; 81003; 81015; 83605; 83690; 83735; 84100; 85025; 87040; 87077; 87086; 87186; 93005; 94640; 96365; 96375; C1751; C1776; C9113; J1650; J1885; J2270; J2405; J2543; J2704; J2997; J3010; J3475; J3480; J3490; J7030; J7050; J7620; Q9967; S0028; U0002

== ENCOUNTER 2022-10-23 10:07 | Emergency (ER) | payer MEDICARE ==
[2022-10-23 10:38] LABS: #Eosinphils 0.1 thou/uL (0.0-0.7); #Lymphocytes 2.3 thou/uL (1.20-3.40); #Monocytes 0.6 thou/uL (0.11-0.59); #Neutrophils 7.1 thou/uL (1.40-6.50); %Basophils 0.4 % (0.0-1.0); %Eosinophils 1.3 % (0.0-10.0); %Lymphocytes 23.1 % (21.0-51.0); %Monocytes 5.4 % (0.0-10.0); %Neutrophils 69.9 % (42.0-75.0); Hemoglobin 15.5 g/dL (12.0-16.0); Mean Corpuscular HGB CONC 32.5 g/dL (32.0-36.0); Mean Corpuscular Hemoglobin 30.4 pg (27.0-31.0); Mean Corpuscular Volume 93.6 fl (78.0-98.0); Platelet Count 213 10x3/uL (130-400); RBC Distribution Width 13.6 % (11.5-14.5); White Blood Cell (WBC) Count 10.2 10x3/uL (4.8-10.8)
[2022-10-23 10:55] LABS: ALT (SGPT) 12 U/L (8-55); AST (SGOT) 38 U/L (5-34); Albumin 3.2 g/dL (3.4-4.8); Alkaline Phosphatase 91 U/L (40-110); Anion Gap 13 mmol/L (10-20); BUN (Urea Nitrogen) 7 mg/dL (9.8-20.1); Bilirubin, Total 1.7 mg/dL (0.2-1.2); Calc. Creatinine Clearance 0 mL/min (70-130); Calcium 8.8 mg/dL (7.8-10.44); Carbon Dioxide 25 mmol/L (23-31); Chloride 103 mmol/L (98-107); Estimated GFR 82; Glucose 107 mg/dL (80-115); Lipase 12 U/L (8-78); Potassium 3.1 mmol/L (3.5-5.1); Protein, Total 7.2 g/dL (5.8-8.1); Sodium 138 mmol/L (136-145)
[2022-10-23] MEDS ORDERED: Ondansetron PF 4 MG/2 ML Vial ONE (12:11)
== END 2022-10-23 14:01 | disposition home or self-care (01) ==
LOC: ERS 10:07
DX: E86.0 Dehydration (principal); R19.7 Diarrhea, unspecified; Z20.822 Contact with and (suspected) exposure to COVID-19; I10 Essential (primary) hypertension; I25.10 Atherosclerotic heart disease of native coronary artery without angina pectoris; E03.9 Hypothyroidism, unspecified
CPT/HCPCS: 71045; 74176; 80053; 83605; 83690; 84484; 85025; 87804 ×2; 93005; U0003; U0005; 36415; 96361; 96374; J2405

== ENCOUNTER 2022-11-10 11:10 | Inpatient (IN) | payer MEDICARE ==
[~2022-11-10 11:10] MED LIST: Iopamidol-370 76% 500 ML 1 ML ONE
[2022-11-10 12:12] LABS: Hemoglobin 17.8 g/dL (12.0-16.0); Mean Corpuscular HGB CONC 32.2 g/dL (32.0-36.0); Mean Corpuscular Hemoglobin 30.1 pg (27.0-31.0); Mean Corpuscular Volume 93.2 fl (78.0-98.0); Mean Platelet Volume 10.7 fL (7.4-10.4); Platelet Count 421 10x3/uL (130-400); RBC Distribution Width 14.5 % (11.5-14.5); Red Blood Cell (RBC) Count 5.92 mill/uL (4.20-5.40); White Blood Cell (WBC) Count 22.1 10x3/uL (4.8-10.8)
[2022-11-10] MEDS ORDERED: Ondansetron PF 4 MG/2 ML Vial ONE (12:22)
[2022-11-10 12:23] LABS: PTT 23.1 sec (22.9-36.1); Prothrombin Time 13.8 sec (12.0-14.7)
[2022-11-10 12:28] LABS: ALT (SGPT) 20 U/L (8-55); AST (SGOT) 42 U/L (5-34); Albumin 3.5 g/dL (3.4-4.8); Alkaline Phosphatase 104 U/L (40-110); Anion Gap 23 mmol/L (10-20); BUN (Urea Nitrogen) 12 mg/dL (9.8-20.1); Bilirubin, Total 1.2 mg/dL (0.2-1.2); CK (CPK) 31 U/L (29-168); Calc. Creatinine Clearance 0 mL/min (70-130); Calcium 8.6 mg/dL (7.8-10.44); Carbon Dioxide 20 mmol/L (23-31); Chloride 99 mmol/L (98-107); Estimated GFR 87; Globulin 4.5 g/dL (2.4-3.5); Glucose 107 mg/dL (80-115); Lipase Less than 4 U/L (8-78); Sodium 139 mmol/L (136-145)
[2022-11-10 12:58] LABS: Band 4 % (5-11); Lymphocytes 14 % (21-51); MDiff Complete? YES; Metamyelocyte 1 % (0-0); Monocytes 9 % (0-10); Neutrophil 70 % (42-75); Platelet Morphology Comment Appears Increased; RBC Morphology Normal; Reactive Lymphocytes 2 % (0-10)
[2022-11-10] MEDS ORDERED: Vancomycin 1 GM/200 ML (FROZEN) BAG ONE (13:06)
[2022-11-10] MEDS ORDERED: Potassium Chloride 20 MEQ/100 ML PREMIX BAG ONE (13:06)
[2022-11-10] MEDS ORDERED: Piperacillin/Tazobactam 4.5 GM VIAL ONE (13:06)
[2022-11-10 13:08] LABS: Bilirubin Negative (Negative); Blood, Urine Negative (Negative); Clarity Clear (Clear); Glucose, Urine (Dipstick) Normal (Negative); Ketone, Urine Negative (Negative); Leukocyte Negative Leu/uL (Negative); Nitrite 1+ (Negative); Protein, Urine (Dipstick) 20 mg/dL (Neg-Trace); RBC/HPF 0-3 HPF (0-3); Squamous Epithelial None Seen HPF (0-3); Urobilinogen Normal mg/dL (Less than 2); pH, Urine 7.5 (5.0-9.0)
[2022-11-10 13:10] LABS: Bacteria/HPF 1+ HPF (None Seen)
[2022-11-10] MEDS ORDERED: Promethazine HCl 25 MG in Sodium Chloride 0.9% 50 ML IVPB SCH (13:15)
[2022-11-10] MEDS ORDERED: Morphine 4 MG/ML VIAL ONE (13:57)
[2022-11-10 14:49] LABS: SARS-CoV-2 NAA Rapid Test Not Detected (NotDetected)
[2022-11-10 15:22] LABS: Lactic Acid 3.2 mmol/L (0.5-2.2)
[2022-11-10] MEDS ORDERED: tiZANidine HCl 4 MG TAB PO PRN (16:26)
[2022-11-10] MEDS ORDERED: HYDROcodone/Acetaminophen 5/325 mg Tablet PO PRN (18:03)
[2022-11-10] MEDS ORDERED: VANCOMYCIN IVPB PRN (18:03)
[2022-11-10] MEDS ORDERED: ANTIBIOTICS IVPB PRN (18:03)
[2022-11-10] MEDS: Sodium Chloride 0.9% 1,000 ML IV SCH (18:46)
[2022-11-10 18:48] VITALS: BMI 27.4
[2022-11-10] MEDS: HYDROcodone/Acetaminophen 7.5/325 mg Tablet PO PRN (19:12)
[2022-11-10] MEDS ORDERED: Vancomycin HCl 750 MG in Sodium Chloride 0.9% 250 ML 250 ML IVPB SCH (19:50)
[2022-11-10] MEDS ORDERED: Promethazine HCl 12.5 MG in Sodium Chloride 0.9% 50 ML IVPB PRN (19:57)
[2022-11-10] MEDS: tiZANidine HCl 4 MG TAB PO PRN (20:56)
[2022-11-10] MEDS: Atorvastatin Calcium 40 MG TAB PO SCH (20:56)
[2022-11-10] MEDS: Pregabalin 50 MG CAP PO SCH (20:56)
[2022-11-10] MEDS: Piperacillin/Tazobactam 3.375 GM in Sodium Chloride 0.9% 100 ML IVPB SCH (21:01)
[2022-11-11] MEDS ORDERED: Sodium Chloride 0.9% 250 ML 250 ML IVPB SCH (00:30)
[2022-11-11 00:31] LABS: #Basophils 0.1 thou/uL (0.0-0.2); #Eosinphils 0.1 thou/uL (0.0-0.7); #Lymphocytes 2.9 thou/uL (1.20-3.40); #Monocytes 1.1 thou/uL (0.11-0.59); #Neutrophils 8.6 thou/uL (1.40-6.50); %Basophils 0.6 % (0.0-1.0); %Eosinophils 0.6 % (0.0-10.0); %Lymphocytes 22.6 % (21.0-51.0); %Monocytes 8.8 % (0.0-10.0); %Neutrophils 67.4 % (42.0-75.0); Hemoglobin 12.9 g/dL (12.0-16.0); Mean Corpuscular HGB CONC 33.7 g/dL (32.0-36.0); Mean Corpuscular Hemoglobin 31.3 pg (27.0-31.0); Mean Corpuscular Volume 92.9 fl (78.0-98.0); Mean Platelet Volume 10.3 fL (7.4-10.4); Platelet Count 222 10x3/uL (130-400); Red Blood Cell (RBC) Count 4.12 mill/uL (4.20-5.40); White Blood Cell (WBC) Count 12.8 10x3/uL (4.8-10.8)
[2022-11-11 00:43] LABS: Lactic Acid 2.8 mmol/L (0.5-2.2)
[2022-11-11] MEDS ORDERED: Sodium Chloride 0.9% 500 ML IV SCH (00:45)
[2022-11-11] MEDS ORDERED: NOREPINEPHRINE 8 MG/250 ML-D5W 250 ML IVPB SCH (01:00)
[2022-11-11] MEDS: Piperacillin/Tazobactam 3.375 GM in Sodium Chloride 0.9% 100 ML IVPB SCH ×3 (04:01→19:34)
[2022-11-11] MEDS: Vancomycin 1 GM in Premix Bag 1 BAG IVPB SCH ×2 (04:01→16:10)
[2022-11-11] MEDS: Sodium Chloride 0.9% 1,000 ML IV SCH ×2 (05:02→19:34)
[2022-11-11 06:53] LABS: Anion Gap 10 mmol/L (10-20); BUN (Urea Nitrogen) 11 mg/dL (9.8-20.1); Calc. Creatinine Clearance 62 mL/min (70-130); Calcium 6.8 mg/dL (7.8-10.44); Carbon Dioxide 27 mmol/L (23-31); Chloride 104 mmol/L (98-107); Estimated GFR 56; Glucose 208 mg/dL (80-115); Potassium 2.5 mmol/L (3.5-5.1); Sodium 138 mmol/L (136-145)
[2022-11-11 07:01] LABS: #Eosinphils 0.3 thou/uL (0.0-0.7); #Monocytes 0.8 thou/uL (0.11-0.59); #Neutrophils 5.6 thou/uL (1.40-6.50); %Basophils 0.4 % (0.0-1.0); %Eosinophils 2.9 % (0.0-10.0); %Lymphocytes 30.9 % (21.0-51.0); %Monocytes 8.5 % (0.0-10.0); %Neutrophils 57.4 % (42.0-75.0); Hemoglobin 11.9 g/dL (12.0-16.0); Mean Corpuscular Hemoglobin 31.2 pg (27.0-31.0); Mean Corpuscular Volume 94.6 fl (78.0-98.0); Mean Platelet Volume 10.7 fL (7.4-10.4); Platelet Count 183 10x3/uL (130-400); Red Blood Cell (RBC) Count 3.83 mill/uL (4.20-5.40); White Blood Cell (WBC) Count 9.7 10x3/uL (4.8-10.8)
[2022-11-11] MEDS: Saccharomyces boulardii 250 MG CAP PO SCH (08:07)
[2022-11-11] MEDS: Aspirin 81 mg Enteric Coated Tablet PO SCH (08:07)
[2022-11-11] MEDS: Pregabalin 50 MG CAP PO SCH ×3 (08:07→19:35)
[2022-11-11] MEDS ORDERED: Electrolyte Replacement Protocol 1 EACH FS SCH (08:15)
[2022-11-11] MEDS ORDERED: Potassium Chloride 40 MEQ in Premix Bag 1 BAG IVPB SCH (08:15)
[2022-11-11] MEDS ORDERED: Electrolyte Replacement Protocol FS PRN (09:45)
[2022-11-11] MEDS: Potassium Chloride 40 MEQ in Sodium Chloride 0.9% 250 ML 250 ML IVPB SCH ×2 (09:57→13:19)
[2022-11-11] MEDS: HYDROcodone/Acetaminophen 7.5/325 mg Tablet PO PRN ×2 (09:58→22:05)
[2022-11-11 13:43] LABS: Calcium 7.1 mg/dL (7.8-10.44); Chloride 105 mmol/L (98-107); Potassium 3.1 mmol/L (3.5-5.1); Sodium 142 mmol/L (136-145)
[2022-11-11 13:44] LABS: Glucose 94 mg/dL (80-115)
[2022-11-11 13:45] LABS: Anion Gap 14 mmol/L (10-20); Carbon Dioxide 26 mmol/L (23-31)
[2022-11-11 13:47] LABS: Calc. Creatinine Clearance 60 mL/min (70-130); Estimated GFR 53
[2022-11-11 13:48] LABS: BUN (Urea Nitrogen) 12 mg/dL (9.8-20.1)
[2022-11-11 13:49] LABS: Magnesium 1.2 mg/dL (1.6-2.6)
[2022-11-11] MEDS ORDERED: Potassium Chloride 20 MEQ TAB PO SCH (14:30)
[2022-11-11] MEDS ORDERED: Magnesium Sulfate In Water 4 GM in Premix Bag 1 BAG IVPB SCH (14:30)
[2022-11-11] MEDS: Atorvastatin Calcium 40 MG TAB PO SCH (19:36)
[2022-11-12 00:47] LABS: ALT (SGPT) 21 U/L (8-55); AST (SGOT) 39 U/L (5-34); Albumin 2.6 g/dL (3.4-4.8); Alkaline Phosphatase 94 U/L (40-110); Anion Gap 14 mmol/L (10-20); BUN (Urea Nitrogen) 10 mg/dL (9.8-20.1); Bilirubin, Total 0.5 mg/dL (0.2-1.2); Calc. Creatinine Clearance 58 mL/min (70-130); Calcium 7.5 mg/dL (7.8-10.44); Carbon Dioxide 22 mmol/L (23-31); Chloride 109 mmol/L (98-107); Estimated GFR 51; Globulin 3.4 g/dL (2.4-3.5); Glucose 149 mg/dL (80-115); Potassium 4.5 mmol/L (3.5-5.1); Sodium 141 mmol/L (136-145)
[2022-11-12] MEDS: tiZANidine HCl 4 MG TAB PO PRN ×2 (03:14→18:06)
[2022-11-12] MEDS: Acetaminophen 325 MG TAB PO PRN (03:14)
[2022-11-12] MEDS: Vancomycin 1 GM in Premix Bag 1 BAG IVPB SCH (03:15)
[2022-11-12] MEDS: Piperacillin/Tazobactam 3.375 GM in Sodium Chloride 0.9% 100 ML IVPB SCH ×2 (03:15→12:54)
[2022-11-12 05:30] LABS: Anion Gap 12 mmol/L (10-20); BUN (Urea Nitrogen) 10 mg/dL (9.8-20.1); Calc. Creatinine Clearance 0 mL/min (70-130); Calcium 7.3 mg/dL (7.8-10.44); Carbon Dioxide 24 mmol/L (23-31); Chloride 111 mmol/L (98-107); Estimated GFR 62; Glucose 128 mg/dL (80-115); Magnesium 2.3 mg/dL (1.6-2.6); Potassium 4.1 mmol/L (3.5-5.1); Sodium 143 mmol/L (136-145)
[2022-11-12 05:40] LABS: Vancomycin, Trough 33.9 ug/mL
[2022-11-12] MEDS: Pregabalin 50 MG CAP PO SCH ×3 (08:52→20:46)
[2022-11-12] MEDS: Saccharomyces boulardii 250 MG CAP PO SCH (08:52)
[2022-11-12] MEDS: Aspirin 81 mg Enteric Coated Tablet PO SCH (08:54)
[2022-11-12] MEDS: Sodium Chloride 0.9% 1,000 ML IV SCH (10:34)
[2022-11-12] MEDS: Vancomycin HCl 125 MG/5 ML (BATCHED) UDCUP PO SCH ×2 (15:04→20:45)
[2022-11-12] MEDS: HYDROcodone/Acetaminophen 7.5/325 mg Tablet PO PRN (18:06)
[2022-11-12] MEDS: Atorvastatin Calcium 40 MG TAB PO SCH (20:46)
[2022-11-13] MEDS: Sodium Chloride 0.9% 1,000 ML IV SCH ×2 (02:42→15:22)
[2022-11-13] MEDS: Vancomycin HCl 125 MG/5 ML (BATCHED) UDCUP PO SCH ×4 (02:42→21:59)
[2022-11-13] MEDS: Famotidine 20 MG TAB PO SCH ×2 (07:52→21:57)
[2022-11-13] MEDS: Pregabalin 50 MG CAP PO SCH ×3 (07:52→21:56)
[2022-11-13] MEDS: Saccharomyces boulardii 250 MG CAP PO SCH (07:52)
[2022-11-13] MEDS: Aspirin 81 mg Enteric Coated Tablet PO SCH (07:52)
[2022-11-13] MEDS: Acetaminophen 325 MG TAB PO PRN (10:31)
[2022-11-13] MEDS ORDERED: hydrALAZINE 20 MG/ML VIAL SLOW IVP PRN (11:02)
[2022-11-13] MEDS ORDERED: Carvedilol 3.125 MG TAB PO SCH (12:00)
[2022-11-13] MEDS: Carvedilol 3.125 MG TAB PO SCH ×2 (12:30→21:56)
[2022-11-13] MEDS ORDERED: cloNIDine 0.1 MG TAB PO PRN (14:42)
[2022-11-13] MEDS: Atorvastatin Calcium 40 MG TAB PO SCH (21:57)
[2022-11-14] MEDS: Vancomycin HCl 125 MG/5 ML (BATCHED) UDCUP PO SCH ×3 (04:33→14:02)
[2022-11-14 06:37] LABS: #Eosinphils 0.4 thou/uL (0.0-0.7); #Lymphocytes 2.7 thou/uL (1.20-3.40); #Monocytes 0.5 thou/uL (0.11-0.59); #Neutrophils 4.1 thou/uL (1.40-6.50); %Basophils 0.6 % (0.0-1.0); %Eosinophils 5.8 % (0.0-10.0); %Lymphocytes 34.5 % (21.0-51.0); %Monocytes 6.5 % (0.0-10.0); %Neutrophils 52.6 % (42.0-75.0); Mean Corpuscular HGB CONC 32.5 g/dL (32.0-36.0); Mean Corpuscular Hemoglobin 31.5 pg (27.0-31.0); Mean Corpuscular Volume 96.9 fl (78.0-98.0); Mean Platelet Volume 11.1 fL (7.4-10.4); Platelet Count 125 10x3/uL (130-400); RBC Distribution Width 14.5 % (11.5-14.5); Red Blood Cell (RBC) Count 3.81 mill/uL (4.20-5.40); White Blood Cell (WBC) Count 7.7 10x3/uL (4.8-10.8)
[2022-11-14 06:58] LABS: Anion Gap 10 mmol/L (10-20); BUN (Urea Nitrogen) 7 mg/dL (9.8-20.1); Calc. Creatinine Clearance 92 mL/min (70-130); Calcium 8.3 mg/dL (7.8-10.44); Carbon Dioxide 23 mmol/L (23-31); Chloride 110 mmol/L (98-107); Estimated GFR 90; Glucose 92 mg/dL (80-115); Magnesium 1.7 mg/dL (1.6-2.6); Potassium 4.7 mmol/L (3.5-5.1); Sodium 138 mmol/L (136-145)
[2022-11-14] MEDS ORDERED: Magnesium 2 GM/50 ML(in water) 2 GM in Premix Bag 1 BAG IVPB SCH (08:00)
[2022-11-14] MEDS: Sodium Chloride 0.9% 1,000 ML IV SCH (08:16)
[2022-11-14] MEDS: Pregabalin 50 MG CAP PO SCH ×2 (08:17→14:01)
[2022-11-14] MEDS: Aspirin 81 mg Enteric Coated Tablet PO SCH (08:17)
[2022-11-14] MEDS: Saccharomyces boulardii 250 MG CAP PO SCH (08:17)
[2022-11-14] MEDS: Carvedilol 3.125 MG TAB PO SCH (08:18)
[2022-11-14] MEDS: Famotidine 20 MG TAB PO SCH (08:18)
[2022-11-14 15:55] VITALS: BP 124/77; TEMP 97.6
== END 2022-11-14 15:30 | disposition home or self-care (01) | DRG 871 ==
LOC: ERS 11:10 → 2NO 18:30 → CCU 11-11 00:55 → T4-B 11-13 17:14
PROVIDERS: ADMIT Family Medicine; ATTEND Family Medicine
PROC: 3E03329 Introduction of Other Anti-infective into Peripheral Vein, Percutaneous Approach (ICD-10-PCS; principal; 2022-11-10)
PROC: 3E033XZ Introduction of Vasopressor into Peripheral Vein, Percutaneous Approach (ICD-10-PCS; 2022-11-11)
DX: A41.9 Sepsis, unspecified organism (principal); R65.21 Severe sepsis with septic shock; A04.71 Enterocolitis due to Clostridium difficile, recurrent; I69.351 Hemiplegia and hemiparesis following cerebral infarction affecting right dominant side; Z20.822 Contact with and (suspected) exposure to COVID-19; E86.9 Volume depletion, unspecified; E83.42 Hypomagnesemia; E87.6 Hypokalemia; G89.29 Other chronic pain; M54.9 Dorsalgia, unspecified; I25.10 Atherosclerotic heart disease of native coronary artery without angina pectoris; E78.00 Pure hypercholesterolemia, unspecified; Z91.013 Allergy to seafood; Z91.09 Other allergy status, other than to drugs and biological substances; Z79.899 Other long term (current) drug therapy; Z79.82 Long term (current) use of aspirin; Z87.11 Personal history of peptic ulcer disease; Z95.1 Presence of aortocoronary bypass graft; Z90.49 Acquired absence of other specified parts of digestive tract; Z98.890 Other specified postprocedural states; Z82.49 Family history of ischemic heart disease and other diseases of the circulatory system; Z86.711 Personal history of pulmonary embolism
CPT/HCPCS: 36415; 71045; 74177; 80048; 80053; 80202; 81003; 81015; 82550; 83605; 83690; 83735; 83880; 84484; 85025; 85610; 85730; 87040; 87324; 87449; 87493; 93005; 93306; 96365; 96366; 96375; J1650; J2270; J2405; J2543; J2550; J3370; J3370-JW; J3475; J3480; J3490; J7030; J7050; Q9967; U0002

== ENCOUNTER 2022-12-01 16:03 | Inpatient (IN) | payer MEDICARE ==
[2022-12-01 16:51] LABS: #Eosinphils 0.2 thou/uL (0.0-0.7); #Lymphocytes 3.4 thou/uL (1.20-3.40); #Monocytes 1.1 thou/uL (0.11-0.59); #Neutrophils 10.5 thou/uL (1.40-6.50); %Basophils 0.3 % (0.0-1.0); %Eosinophils 1.2 % (0.0-10.0); %Lymphocytes 22.1 % (21.0-51.0); %Monocytes 7.3 % (0.0-10.0); Hemoglobin 16.1 g/dL (12.0-16.0); Mean Corpuscular HGB CONC 33.7 g/dL (32.0-36.0); Mean Corpuscular Hemoglobin 31.9 pg (27.0-31.0); Mean Corpuscular Volume 94.9 fl (78.0-98.0); Mean Platelet Volume 10.2 fL (7.4-10.4); Platelet Count 358 10x3/uL (130-400); RBC Distribution Width 14.4 % (11.5-14.5); Red Blood Cell (RBC) Count 5.03 mill/uL (4.20-5.40); White Blood Cell (WBC) Count 15.2 10x3/uL (4.8-10.8)
[2022-12-01 17:12] LABS: ALT (SGPT) 57 U/L (8-55); AST (SGOT) 67 U/L (5-34); Albumin 3.8 g/dL (3.4-4.8); Alkaline Phosphatase 169 U/L (40-110); Anion Gap 15 mmol/L (10-20); BUN (Urea Nitrogen) 13 mg/dL (9.8-20.1); Bilirubin, Total 1.1 mg/dL (0.2-1.2); Calc. Creatinine Clearance 0 mL/min (70-130); Calcium 9.7 mg/dL (7.8-10.44); Carbon Dioxide 24 mmol/L (23-31); Chloride 102 mmol/L (98-107); Estimated GFR 76; Globulin 4.2 g/dL (2.4-3.5); Glucose 115 mg/dL (80-115); Lipase 7 U/L (8-78); Potassium 3.7 mmol/L (3.5-5.1); Sodium 137 mmol/L (136-145)
[2022-12-01 17:34] LABS: CKMB 0.6 ng/mL (0-6.6)
[2022-12-01] MEDS ORDERED: Morphine 4 MG/ML VIAL ONE ×2 (18:28→20:23)
[2022-12-01] MEDS ORDERED: Ondansetron PF 4 MG/2 ML Vial ONE (18:28)
[2022-12-01] MEDS ORDERED: Dicyclomine 20 MG/2 ML VIAL ONE (20:24)
[2022-12-01 21:32] LABS: SARS-CoV-2 NAA Rapid Test Not Detected (NotDetected)
[2022-12-01] MEDS ORDERED: Ondansetron ODT 4 MG TAB PO PRN (21:56)
[2022-12-01 22:13] LABS: Bacteria/HPF 4+ HPF (None Seen); Bilirubin Negative (Negative); Blood, Urine 1+ (Negative); Clarity Turbid (Clear); Glucose, Urine (Dipstick) Normal (Negative); Ketone, Urine Negative (Negative); Leukocyte 500 Leu/uL (Negative); Nitrite Negative (Negative); Protein, Urine (Dipstick) 20 mg/dL (Neg-Trace); Specific Gravity, Urine 1.029 (1.002-1.036); Squamous Epithelial 0-3 HPF (0-3); Urobilinogen Normal mg/dL (Less than 2); WBC/HPF Greater than 50 HPF (0-3); pH, Urine 6.5 (5.0-9.0)
[2022-12-02 01:39] LABS: Troponin I 0.071 ng/mL (< 0.028)
[2022-12-02 07:51] LABS: Anion Gap 12 mmol/L (10-20); BUN (Urea Nitrogen) 15 mg/dL (9.8-20.1); Calc. Creatinine Clearance 0 mL/min (70-130); Calcium 9.1 mg/dL (7.8-10.44); Carbon Dioxide 27 mmol/L (23-31); Chloride 105 mmol/L (98-107); Estimated GFR 65; Glucose 87 mg/dL (80-115); Potassium 4.1 mmol/L (3.5-5.1); Sodium 140 mmol/L (136-145)
[2022-12-02 07:52] LABS: #Basophils 0.1 thou/uL (0.0-0.2); #Eosinphils 0.5 thou/uL (0.0-0.7); #Lymphocytes 3.3 thou/uL (1.20-3.40); #Monocytes 0.9 thou/uL (0.11-0.59); #Neutrophils 6.6 thou/uL (1.40-6.50); %Basophils 0.5 % (0.0-1.0); %Eosinophils 4.2 % (0.0-10.0); %Lymphocytes 29.2 % (21.0-51.0); %Monocytes 7.9 % (0.0-10.0); %Neutrophils 58.2 % (42.0-75.0); Hemoglobin 13.6 g/dL (12.0-16.0); Mean Corpuscular HGB CONC 32.5 g/dL (32.0-36.0); Mean Corpuscular Hemoglobin 31.6 pg (27.0-31.0); Mean Corpuscular Volume 97.2 fl (78.0-98.0); Mean Platelet Volume 9.6 fL (7.4-10.4); Platelet Count 261 10x3/uL (130-400); RBC Distribution Width 14.4 % (11.5-14.5); Red Blood Cell (RBC) Count 4.31 mill/uL (4.20-5.40); White Blood Cell (WBC) Count 11.4 10x3/uL (4.8-10.8)
[2022-12-02 07:56] LABS: Troponin I 0.066 ng/mL (< 0.028)
[2022-12-02 08:02] VITALS: BMI 27.1
[2022-12-02] MEDS ORDERED: Vancomycin HCl 125 MG/5 ML (BATCHED) UDCUP PO SCH (09:00)
[2022-12-02] MEDS: Carvedilol 6.25 MG TAB PO SCH ×2 (09:48→20:35)
[2022-12-02] MEDS: Famotidine 20 MG TAB PO SCH ×2 (09:48→20:34)
[2022-12-02] MEDS: Aspirin 81 mg Enteric Coated Tablet PO SCH (09:48)
[2022-12-02] MEDS: Pregabalin 50 MG CAP PO SCH ×3 (09:48→20:36)
[2022-12-02] MEDS: Sodium Chloride 0.9% 1,000 ML IV SCH ×2 (09:48→20:37)
[2022-12-02] MEDS: Acetaminophen 325 MG TAB PO PRN ×2 (09:49→23:52)
[2022-12-02] MEDS: Saccharomyces boulardii 250 MG CAP PO SCH (09:49)
[2022-12-02] MEDS: traMADol HCl 50 MG TAB PO PRN ×2 (12:38→19:44)
[2022-12-02] MEDS: Atorvastatin Calcium 40 MG TAB PO SCH (20:35)
[2022-12-02] MEDS: Fidaxomicin 200 MG TAB PO SCH (20:36)
[2022-12-02] MEDS ORDERED: Morphine 2 MG/ML VIAL SLOW IVP SCH (21:00)
[2022-12-03] MEDS: traMADol HCl 50 MG TAB PO PRN ×2 (05:32→12:07)
[2022-12-03] MEDS: Pregabalin 50 MG CAP PO SCH ×3 (09:22→20:21)
[2022-12-03] MEDS: Aspirin 81 mg Enteric Coated Tablet PO SCH (09:22)
[2022-12-03] MEDS: Famotidine 20 MG TAB PO SCH ×2 (09:22→20:20)
[2022-12-03] MEDS: Saccharomyces boulardii 250 MG CAP PO SCH (09:22)
[2022-12-03] MEDS: Carvedilol 6.25 MG TAB PO SCH ×2 (09:23→20:20)
[2022-12-03] MEDS: Sodium Chloride 0.9% 1,000 ML IV SCH (09:23)
[2022-12-03] MEDS: Fidaxomicin 200 MG TAB PO SCH ×2 (09:23→21:12)
[2022-12-03 11:42] LABS: #Basophils 0.1 thou/uL (0.0-0.2); #Eosinphils 0.8 thou/uL (0.0-0.7); #Lymphocytes 2.9 thou/uL (1.20-3.40); #Monocytes 0.8 thou/uL (0.11-0.59); #Neutrophils 4.5 thou/uL (1.40-6.50); %Basophils 0.8 % (0.0-1.0); %Eosinophils 8.9 % (0.0-10.0); %Lymphocytes 32.1 % (21.0-51.0); %Monocytes 8.7 % (0.0-10.0); %Neutrophils 49.4 % (42.0-75.0); Hemoglobin 12.5 g/dL (12.0-16.0); Mean Corpuscular HGB CONC 31.9 g/dL (32.0-36.0); Mean Corpuscular Hemoglobin 31.4 pg (27.0-31.0); Mean Corpuscular Volume 98.5 fl (78.0-98.0); Mean Platelet Volume 10.1 fL (7.4-10.4); Platelet Count 212 10x3/uL (130-400); RBC Distribution Width 14.2 % (11.5-14.5); Red Blood Cell (RBC) Count 3.97 mill/uL (4.20-5.40); White Blood Cell (WBC) Count 9.1 10x3/uL (4.8-10.8)
[2022-12-03 12:00] LABS: Anion Gap 12 mmol/L (10-20); BUN (Urea Nitrogen) 11 mg/dL (9.8-20.1); Calc. Creatinine Clearance 73 mL/min (70-130); Calcium 8.4 mg/dL (7.8-10.44); Carbon Dioxide 23 mmol/L (23-31); Chloride 109 mmol/L (98-107); Estimated GFR 66; Glucose 115 mg/dL (80-115); Potassium 4.2 mmol/L (3.5-5.1); Sodium 140 mmol/L (136-145)
[2022-12-03] MEDS: Morphine ER 15 MG TAB PO SCH ×2 (14:44→21:54)
[2022-12-03] MEDS: Atorvastatin Calcium 40 MG TAB PO SCH (20:23)
[2022-12-04] MEDS: Sodium Chloride 0.9% 1,000 ML IV SCH ×2 (00:27→12:45)
[2022-12-04] MEDS: Morphine ER 15 MG TAB PO SCH ×2 (05:54→14:12)
[2022-12-04] MEDS: Pregabalin 50 MG CAP PO SCH ×2 (08:53→14:12)
[2022-12-04] MEDS: Famotidine 20 MG TAB PO SCH (08:54)
[2022-12-04] MEDS: Fidaxomicin 200 MG TAB PO SCH (08:54)
[2022-12-04] MEDS: Saccharomyces boulardii 250 MG CAP PO SCH (08:54)
[2022-12-04] MEDS: Aspirin 81 mg Enteric Coated Tablet PO SCH (08:54)
[2022-12-04] MEDS: Carvedilol 6.25 MG TAB PO SCH (08:54)
[2022-12-04 16:01] VITALS: BP 124/70; TEMP 97.5
[2022-12-08] MEDS ORDERED: Vancomycin HCl 125 MG/5 ML (BATCHED) UDCUP PO SCH (09:00)
[2022-12-16] MEDS ORDERED: Vancomycin HCl 125 MG/5 ML (BATCHED) UDCUP PO SCH (09:00)
== END 2022-12-04 16:01 | disposition home or self-care (01) | DRG 372 ==
LOC: ERS 16:03 → T4-A 20:24 → ERHOLD 20:33 → T4-A 12-02 07:54
PROVIDERS: ADMIT Student in an Organized Health Care Education/Training Program; ATTEND Internal Medicine
DX: A04.71 Enterocolitis due to Clostridium difficile, recurrent (principal); I24.8 Other forms of acute ischemic heart disease; I69.951 Hemiplegia and hemiparesis following unspecified cerebrovascular disease affecting right dominant side; Z20.822 Contact with and (suspected) exposure to COVID-19; E03.9 Hypothyroidism, unspecified; I25.10 Atherosclerotic heart disease of native coronary artery without angina pectoris; I10 Essential (primary) hypertension; E78.5 Hyperlipidemia, unspecified; Z90.49 Acquired absence of other specified parts of digestive tract; Z95.1 Presence of aortocoronary bypass graft; I25.2 Old myocardial infarction; Z91.013 Allergy to seafood
CPT/HCPCS: 36415; 71045; 74177; 80048; 80053; 81003; 81015; 82553; 83690; 84484; 85025; 93005; 96361; 96372; 96374; 96375; 96376; J1650; J2270; J2272; J2405; J7050; Q9967; U0002

== ENCOUNTER 2023-03-06 02:47 | Emergency (ER) | payer MEDICARE ==
[2023-03-06 03:33] LABS: #Basophils 0.1 thou/uL (0.0-0.2); #Eosinphils 0.3 thou/uL (0.0-0.7); #Neutrophils 4.9 thou/uL (1.40-6.50); %Basophils 0.7 % (0.0-1.0); %Eosinophils 3.6 % (0.0-10.0); %Lymphocytes 23.3 % (21.0-51.0); %Monocytes 12.4 % (0.0-10.0); %Neutrophils 58.8 % (42.0-75.0); Hemoglobin 13.6 g/dL (12.0-16.0); Mean Corpuscular HGB CONC 31.6 g/dL (32.0-36.0); Mean Corpuscular Hemoglobin 30.6 pg (27.0-31.0); Mean Corpuscular Volume 96.6 fl (78.0-98.0); Mean Platelet Volume 11.9 fL (7.4-10.4); Platelet Count 244 10x3/uL (130-400); RBC Distribution Width 13.3 % (11.5-14.5); Red Blood Cell (RBC) Count 4.45 mill/uL (4.20-5.40); White Blood Cell (WBC) Count 8.3 10x3/uL (4.8-10.8)
[2023-03-06 03:56] LABS: Albumin 3.3 g/dL (3.4-4.8); Alkaline Phosphatase 106 U/L (40-110); Anion Gap 14 mmol/L (10-20); BUN (Urea Nitrogen) 40 mg/dL (9.8-20.1); Bilirubin, Total 0.3 mg/dL (0.2-1.2); Calc. Creatinine Clearance 0 mL/min (70-130); Calcium 9.7 mg/dL (7.8-10.44); Carbon Dioxide 25 mmol/L (23-31); Chloride 106 mmol/L (98-107); Estimated GFR 31; Globulin 3.6 g/dL (2.4-3.5); Glucose 113 mg/dL (80-115); Potassium 5.1 mmol/L (3.5-5.1); Protein, Total 6.9 g/dL (5.8-8.1); Sodium 140 mmol/L (136-145)
[2023-03-06 03:57] LABS: ALT (SGPT) 24 U/L (8-55); AST (SGOT) 34 U/L (5-34)
[2023-03-06] MEDS ORDERED: Iopamidol-370 76% 500 ML MDV (1 ML CHARGE) ONE (11:08)
== END 2023-03-06 07:07 | disposition home or self-care (01) ==
LOC: ERS 02:47
DX: K11.20 Sialoadenitis, unspecified (principal); I10 Essential (primary) hypertension; I25.10 Atherosclerotic heart disease of native coronary artery without angina pectoris; E03.9 Hypothyroidism, unspecified
CPT/HCPCS: 36415; 70491; 80053; 85025; Q9967

== ENCOUNTER 2023-03-07 22:57 | Inpatient (IN) | payer MEDICARE ==
[2023-03-07 23:41] LABS: #Basophils 0.1 thou/uL (0.0-0.2); #Eosinphils 0.2 thou/uL (0.0-0.7); #Neutrophils 15.1 thou/uL (1.40-6.50); %Basophils 0.3 % (0.0-1.0); %Eosinophils 0.9 % (0.0-10.0); %Lymphocytes 7.7 % (21.0-51.0); %Monocytes 5.5 % (0.0-10.0); %Neutrophils 84.4 % (42.0-75.0); Hemoglobin 13.6 g/dL (12.0-16.0); Mean Corpuscular HGB CONC 31.7 g/dL (32.0-36.0); Mean Corpuscular Hemoglobin 30.2 pg (27.0-31.0); Mean Corpuscular Volume 95.1 fl (78.0-98.0); Mean Platelet Volume 11.4 fL (7.4-10.4); Platelet Count 198 10x3/uL (130-400); RBC Distribution Width 13.3 % (11.5-14.5); Red Blood Cell (RBC) Count 4.51 mill/uL (4.20-5.40); White Blood Cell (WBC) Count 17.9 10x3/uL (4.8-10.8)
[2023-03-08 00:01] LABS: ALT (SGPT) 17 U/L (8-55); AST (SGOT) 26 U/L (5-34); Acetaminophen Less than 10.0 mcg/mL (10.0-30.0); Albumin 2.9 g/dL (3.4-4.8); Alcohol Less than 10 mg/dL (Less than 10); Alkaline Phosphatase 102 U/L (40-110); Anion Gap 15 mmol/L (10-20); BUN (Urea Nitrogen) 36 mg/dL (9.8-20.1); Bilirubin, Total 0.6 mg/dL (0.2-1.2); CK (CPK) 82 U/L (29-168); Calc. Creatinine Clearance 0 mL/min (70-130); Calcium 8.7 mg/dL (7.8-10.44); Carbon Dioxide 23 mmol/L (23-31); Chloride 106 mmol/L (98-107); Estimated GFR 29; Globulin 3.1 g/dL (2.4-3.5); Glucose 131 mg/dL (80-115); Lipase 8 U/L (8-78); Potassium 5.4 mmol/L (3.5-5.1); Salicylate Less than 8.0 mg/dL (15.0-30.0); Sodium 139 mmol/L (136-145)
[2023-03-08] MEDS ORDERED: cefTRIAXone (ROCEPHIN) 2 GM VIAL ONE (00:12)
[2023-03-08 00:22] LABS: CKMB 0.8 ng/mL (0-6.6)
[2023-03-08] MEDS ORDERED: Dexamethasone 10 MG/ML VIAL ONE (01:06)
[2023-03-08 03:50] LABS: Bacteria/HPF 4+ HPF (None Seen); Bilirubin Negative (Negative); Blood, Urine Negative (Negative); Clarity Turbid (Clear); Glucose, Urine (Dipstick) Normal (Negative); Ketone, Urine Negative (Negative); Leukocyte 500 Leu/uL (Negative); Nitrite 2+ (Negative); Protein, Urine (Dipstick) 30 mg/dL (Neg-Trace); RBC/HPF 0-3 HPF (0-3); Specific Gravity, Urine 1.026 (1.002-1.036); Squamous Epithelial 0-3 HPF (0-3); Urobilinogen Normal mg/dL (Less than 2); WBC/HPF Greater than 50 HPF (0-3); pH, Urine 5.5 (5.0-9.0)
[2023-03-08 03:54] LABS: Amphetamine Not Detected (NotDetected); Barbiturates Screen Not Detected (NotDetected); Benzodiazepine Screen Not Detected (NotDetected); Cocaine Metabolite Screen Not Detected (NotDetected); Methadone Not Detected (NotDetected); Methamphetamine Not Detected (NotDetected); Opiate Screen Detected (NotDetected); Oxycodone Screen Not Detected (NotDetected); Phencyclidine (PCP) Not Detected (NotDetected); THC/Cannabinoid Screen Not Detected (NotDetected); Tricyclic Screen Not Detected (NotDetected)
[2023-03-08] MEDS ORDERED: Vancomycin 1 GM/200 ML (FROZEN) BAG ONE (04:29)
[2023-03-08] MEDS ORDERED: Ondansetron PF 4 MG/2 ML Vial IVP PRN (04:38)
[2023-03-08] MEDS ORDERED: Sodium Chloride 0.9% 1,000 ML IV SCH (05:30)
[2023-03-08 05:55] VITALS: BMI 29.1
[2023-03-08] MEDS ORDERED: Piperacillin/Tazobactam 3.375 GM in Sodium Chloride 0.9% 100 ML IVPB SCH (06:00)
[2023-03-08 06:50] LABS: #Basophils 0.1 thou/uL (0.0-0.2); #Monocytes 0.1 thou/uL (0.11-0.59); #Neutrophils 13.9 thou/uL (1.40-6.50); %Basophils 0.4 % (0.0-1.0); %Lymphocytes 5.4 % (21.0-51.0); %Monocytes 0.6 % (0.0-10.0); %Neutrophils 92.3 % (42.0-75.0); Hemoglobin 12.5 g/dL (12.0-16.0); Mean Corpuscular Hemoglobin 29.6 pg (27.0-31.0); Mean Platelet Volume 11.9 fL (7.4-10.4); Platelet Count 171 10x3/uL (130-400); RBC Distribution Width 13.4 % (11.5-14.5); Red Blood Cell (RBC) Count 4.23 mill/uL (4.20-5.40); White Blood Cell (WBC) Count 15.1 10x3/uL (4.8-10.8)
[2023-03-08 06:52] LABS: Mean Corpuscular Volume 98.3 fl (78.0-98.0)
[2023-03-08 07:42] LABS: Anion Gap 12 mmol/L (10-20); BUN (Urea Nitrogen) 30 mg/dL (9.8-20.1); Calc. Creatinine Clearance 46 mL/min (70-130); Calcium 8.1 mg/dL (7.8-10.44); Carbon Dioxide 19 mmol/L (23-31); Chloride 112 mmol/L (98-107); Estimated GFR 36; Glucose 172 mg/dL (80-115); Potassium 5.2 mmol/L (3.5-5.1); Sodium 138 mmol/L (136-145)
[2023-03-08] MEDS: Piperacillin/Tazobactam 3.375 GM in Sodium Chloride 0.9% 100 ML IVPB SCH ×2 (09:31→17:36)
[2023-03-08] MEDS: Lactated Ringer's 1,000 ML IV SCH ×2 (10:43→17:28)
[2023-03-08] MEDS ORDERED: Promethazine HCl 25 MG in Sodium Chloride 0.9% 50 ML IVPB PRN (16:00)
[2023-03-08] MEDS: Acetaminophen 325 MG TAB PO PRN (17:26)
[2023-03-08] MEDS ORDERED: Morphine 2 MG/ML VIAL SLOW IVP PRN (20:18)
[2023-03-08] MEDS ORDERED: tiZANidine HCl 4 MG TAB PO PRN (20:22)
[2023-03-08] MEDS: Atorvastatin Calcium 40 MG TAB PO SCH (22:02)
[2023-03-09] MEDS: Piperacillin/Tazobactam 3.375 GM in Sodium Chloride 0.9% 100 ML IVPB SCH ×3 (01:31→17:33)
[2023-03-09] MEDS: HYDROcodone/Acetaminophen 5/325 mg Tablet PO PRN (04:44)
[2023-03-09 05:03] LABS: Hemoglobin 12.2 g/dL (12.0-16.0); Mean Corpuscular HGB CONC 30.6 g/dL (32.0-36.0); Mean Corpuscular Hemoglobin 29.8 pg (27.0-31.0); Mean Corpuscular Volume 97.3 fl (78.0-98.0); Mean Platelet Volume 11.7 fL (7.4-10.4); Platelet Count 191 10x3/uL (130-400); RBC Distribution Width 13.2 % (11.5-14.5)
[2023-03-09 05:11] LABS: Delete Auto Diff?? YES; Manual Diff?? YES
[2023-03-09 05:33] LABS: Anion Gap 12 mmol/L (10-20); BUN (Urea Nitrogen) 28 mg/dL (9.8-20.1); Calc. Creatinine Clearance 52 mL/min (70-130); Calcium 8.2 mg/dL (7.8-10.44); Carbon Dioxide 20 mmol/L (23-31); Chloride 113 mmol/L (98-107); Estimated GFR 39; Glucose 111 mg/dL (80-115); Potassium 4.6 mmol/L (3.5-5.1); Sodium 140 mmol/L (136-145)
[2023-03-09 05:40] LABS: CellaVision Operator ID LAB.CLH1; Platelet Morphology Comment Platelets Normal; Polychromasia SLIGHT = 2-3 cells HPF (0-2)
[2023-03-09] MEDS: Lactated Ringer's 1,000 ML IV SCH (06:27)
[2023-03-09 06:52] LABS: Band 18 % (5-11); Lymphocytes 5 % (21-51); Monocytes 4 % (0-10); Neutrophil 73 % (42-75); Poikilocytosis MODERATE=16-30 cells HPF (0-5); Total Cell Count 101
[2023-03-09] MEDS ORDERED: VANCOMYCIN HCL 125 MG PO SCH (09:00)
[2023-03-09] MEDS: Aspirin 81 mg Enteric Coated Tablet PO SCH (09:10)
[2023-03-09] MEDS: Acetaminophen 325 MG TAB PO PRN (09:10)
[2023-03-09] MEDS: Vancomycin HCl 125 MG/5 ML (BATCHED) UDCUP PO SCH ×3 (09:52→22:30)
[2023-03-09] MEDS: Atorvastatin Calcium 40 MG TAB PO SCH (20:00)
[2023-03-09] MEDS: Morphine ER 15 MG TAB PO SCH (20:01)
[2023-03-10] MEDS: Piperacillin/Tazobactam 3.375 GM in Sodium Chloride 0.9% 100 ML IVPB SCH ×3 (02:13→17:06)
[2023-03-10] MEDS: HYDROcodone/Acetaminophen 5/325 mg Tablet PO PRN (02:18)
[2023-03-10 04:39] LABS: #Monocytes 0.5 thou/uL (0.11-0.59); #Neutrophils 9.5 thou/uL (1.40-6.50); %Basophils 0.3 % (0.0-1.0); %Lymphocytes 13.9 % (21.0-51.0); %Monocytes 4.5 % (0.0-10.0); %Neutrophils 80.1 % (42.0-75.0); Hemoglobin 11.7 g/dL (12.0-16.0); Mean Corpuscular HGB CONC 31.3 g/dL (32.0-36.0); Mean Corpuscular Hemoglobin 29.5 pg (27.0-31.0); Mean Corpuscular Volume 94.4 fl (78.0-98.0); Platelet Count 184 10x3/uL (130-400); RBC Distribution Width 13.2 % (11.5-14.5); Red Blood Cell (RBC) Count 3.96 mill/uL (4.20-5.40); White Blood Cell (WBC) Count 11.8 10x3/uL (4.8-10.8)
[2023-03-10 05:06] LABS: Anion Gap 11 mmol/L (10-20); BUN (Urea Nitrogen) 26 mg/dL (9.8-20.1); Calc. Creatinine Clearance 55 mL/min (70-130); Carbon Dioxide 21 mmol/L (23-31); Chloride 112 mmol/L (98-107); Estimated GFR 41; Glucose 73 mg/dL (80-115); Potassium 4.1 mmol/L (3.5-5.1); Sodium 140 mmol/L (136-145)
[2023-03-10] MEDS: Morphine ER 15 MG TAB PO SCH ×2 (08:19→21:07)
[2023-03-10] MEDS: Aspirin 81 mg Enteric Coated Tablet PO SCH (08:19)
[2023-03-10] MEDS: Vancomycin HCl 125 MG/5 ML (BATCHED) UDCUP PO SCH ×3 (08:21→21:20)
[2023-03-10] MEDS: Atorvastatin Calcium 40 MG TAB PO SCH (21:06)
[2023-03-10] MEDS ORDERED: Melatonin 3 MG TAB PO PRN (23:54)
[2023-03-11] MEDS: HYDROcodone/Acetaminophen 5/325 mg Tablet PO PRN ×4 (00:18→15:44)
[2023-03-11] MEDS: Piperacillin/Tazobactam 3.375 GM in Sodium Chloride 0.9% 100 ML IVPB SCH ×2 (02:06→09:33)
[2023-03-11 04:57] LABS: #Eosinphils 0.1 thou/uL (0.0-0.7); #Monocytes 0.4 thou/uL (0.11-0.59); #Neutrophils 3.2 thou/uL (1.40-6.50); %Basophils 0.5 % (0.0-1.0); %Eosinophils 2.1 % (0.0-10.0); %Lymphocytes 31.7 % (21.0-51.0); %Monocytes 7.4 % (0.0-10.0); %Neutrophils 56.9 % (42.0-75.0); Hemoglobin 11.6 g/dL (12.0-16.0); Mean Corpuscular HGB CONC 31.1 g/dL (32.0-36.0); Mean Corpuscular Volume 96.4 fl (78.0-98.0); Mean Platelet Volume 11.1 fL (7.4-10.4); Platelet Count 153 10x3/uL (130-400); RBC Distribution Width 13.2 % (11.5-14.5); Red Blood Cell (RBC) Count 3.87 mill/uL (4.20-5.40); White Blood Cell (WBC) Count 5.6 10x3/uL (4.8-10.8)
[2023-03-11 05:22] LABS: Anion Gap 11 mmol/L (10-20); BUN (Urea Nitrogen) 22 mg/dL (9.8-20.1); Calc. Creatinine Clearance 66 mL/min (70-130); Calcium 7.7 mg/dL (7.8-10.44); Carbon Dioxide 23 mmol/L (23-31); Chloride 113 mmol/L (98-107); Estimated GFR 52; Glucose 74 mg/dL (80-115); Potassium 3.9 mmol/L (3.5-5.1); Sodium 143 mmol/L (136-145)
[2023-03-11] MEDS: Aspirin 81 mg Enteric Coated Tablet PO SCH (08:03)
[2023-03-11] MEDS: Morphine ER 15 MG TAB PO SCH (08:05)
[2023-03-11] MEDS: Vancomycin HCl 125 MG/5 ML (BATCHED) UDCUP PO SCH (09:33)
[2023-03-11 15:43] VITALS: BP 124/60; TEMP 98.1
== END 2023-03-11 18:09 | disposition home or self-care (01) | DRG 871 ==
LOC: ERS 22:57 → 2NO 03-08 05:47
PROVIDERS: ADMIT Internal Medicine; ATTEND Hospitalist
DX: A41.9 Sepsis, unspecified organism (principal); G92.8 Other toxic encephalopathy; I69.951 Hemiplegia and hemiparesis following unspecified cerebrovascular disease affecting right dominant side; N39.0 Urinary tract infection, site not specified; N17.9 Acute kidney failure, unspecified; K11.21 Acute sialoadenitis; I10 Essential (primary) hypertension; I25.10 Atherosclerotic heart disease of native coronary artery without angina pectoris; E03.9 Hypothyroidism, unspecified; E87.5 Hyperkalemia; G89.4 Chronic pain syndrome; Z91.013 Allergy to seafood; Z79.899 Other long term (current) drug therapy; Z79.82 Long term (current) use of aspirin
CPT/HCPCS: 36415; 70450; 70491; 80048; 80053; 80306; 80307; 81003; 81015; 82140; 82550; 82553; 83605; 83690; 84443; 84484; 85025; 86140; 87040; 87086; 93005; 96374; 96375; J0696; J1100; J1650; J2272; J2405; J2543; J2550; J3370-JW; J3490; J7050; J7120; Q9967

== ENCOUNTER 2025-05-17 10:20 | Inpatient (IN) | payer MEDICARE ==
[~2025-05-17 10:20] MED LIST changes: -Iopamidol-370 76% 500 ML 1 ML ONE; +Iopamidol-370 76% 500 ML MDV (1 ML CHARGE) ONE
[2025-05-17 11:02] LABS: Hematocrit 35.2 % (36.0-47.0); Hemoglobin 10.3 g/dL (12.0-16.0); Mean Corpuscular Hemoglobin 25.1 pg (27.0-31.0); Mean Corpuscular Volume 85.6 fL (78.0-98.0); Platelet Count 130 10x3/uL (130-400); Red Blood Cell (RBC) Count 4.11 mill/uL (4.20-5.40); White Blood Cell (WBC) Count 29.60 10x3/uL (4.8-10.8)
[2025-05-17 11:07] LABS: INR-International Normal Ratio 1.2; Prothrombin Time 15.6 sec (12.0-14.7)
[2025-05-17 11:08] LABS: PTT 30.8 sec (22.9-36.1)
[2025-05-17 11:11] LABS: ALT (SGPT) Less than 7 U/L (Less than 34); AST (SGOT) 16 U/L (11-34); Albumin 3.0 g/dL (3.1-4.5); Alkaline Phosphatase 93 U/L (40-110); Anion Gap 19 mmol/L (10-20); BUN (Urea Nitrogen) 26 mg/dL (9.8-20.1); Bilirubin, Total 0.7 mg/dL (0.3-1.2); Calc. Creatinine Clearance 0 mL/min (70-130); Calcium 8.3 mg/dL (7.8-10.44); Carbon Dioxide 18 mmol/L (23-31); Chloride 104 mmol/L (98-107); Globulin 4.3 g/dL (2.4-3.5); Glucose 100 mg/dL (80-115); Lipase 4 U/L (8-78); Magnesium 1.4 mg/dL (1.6-2.6); Potassium 4.0 mmol/L (3.5-5.1); Sodium 137 mmol/L (136-145)
[2025-05-17 11:29] LABS: Burr Cells SLIGHT = 2-5 cells HPF (0-1); Giant Platelets 1.9 % (0-5); Macrocytosis SLIGHT = 6-15 cells HPF (0-5); Platelet Adequacy Comment Platelets Normal; Polychromasia SLIGHT = 2-3 cells HPF (0-2); Schistocytes SLIGHT = 2-5 cells HPF (0-1); Smudge Cells 7.5 %; Toxic Granulation SLIGHT
[2025-05-17] MEDS ORDERED: NOREPINEPHRINE 8 MG/250 ML-D5W 250 ML ONE (11:44)
[2025-05-17 11:50] LABS: Troponin I 0.179 ng/mL (< 0.028)
[2025-05-17] MEDS ORDERED: Ondansetron PF 4 MG/2 ML Vial ONE (12:55)
[2025-05-17] MEDS ORDERED: Acetaminophen/Codeine 30-300mg Tablet PO PRN (12:59)
[2025-05-17] MEDS ORDERED: Electrolyte Replacement Protocol 1 EACH FS SCH (13:00)
[2025-05-17] MEDS ORDERED: Rocuronium Bromide 10 MG/ML (10ML VIAL) ONE (14:49)
[2025-05-17] MEDS ORDERED: Etomidate 40 MG (20 mL) VIAL ONE (14:49)
[2025-05-17] MEDS ORDERED: SUCCINYLCHOLINE/SOD CL,ISO/PF 200 MG/10 ML SYRINGE FS ONE (14:49)
[2025-05-17] MEDS ORDERED: fentaNYL PF 100 MCG/2 ML SYRINGE ONE (14:57)
[2025-05-17] MEDS ORDERED: PHENYLEPHRINE-NS 100 MCG/ML 10 ML SYRINGE ONE (15:31)
[2025-05-17] MEDS ORDERED: Lidocaine 2% 6 ML (Jelly) SYR ONE (15:37)
[2025-05-17] MEDS ORDERED: Bupivacaine 0.25% HCL 30 ML VIAL ONE (15:37)
[2025-05-17 16:29] LABS: Glucose, Urine (Dipstick) Normal (Negative); Leukocyte 500 Leu/uL (Negative); Protein, Urine (Dipstick) 70 mg/dL (Neg-Trace); Specific Gravity, Urine 1.038 (1.002-1.036); WBC/HPF Greater than 50 HPF (0-3)
[2025-05-17 16:39] LABS: Bacteria/HPF 4+ HPF (None Seen)
[2025-05-17] MEDS ORDERED: Ventilator Sedation Protocol 1 EACH FS SCH (17:30)
[2025-05-17] MEDS ORDERED: DISCONTINUE PREVIOUS NARCOTIC PAIN MEDICATIONS AND BENZODIAZEPINES FS SCH (17:45)
[2025-05-17] MEDS ORDERED: Fentanyl BOLUS 100 ML IVPB PRN (17:45)
[2025-05-17] MEDS ORDERED: Propofol BOLUS 1,000 MG/100 ML VIAL IV PRN (17:45)
[2025-05-17 18:19] LABS: Actual Bicarbonate (HCO3a) 18.4 mEq/L (22-28); Base Excess (BEa) -6.2 mEq/L (-2.0 to +3.0); CO2 Tension 32.6 mmHg (35.0-45.0); Calcium, Ionized (arterial) 1.06 mmol/L (1.12-1.30); Hematocrit-ABG 26 % (36.0-47.0); Hemoglobin (Hb) 8.9 g/dL (12.0-16.0); O2 Tension (PaO2), arterial 146.5 mmHg (> 80.0); Potassium - ABG Lab 4.05 mmol/L (3.70-5.30); pH, Arterial 7.369 (7.35-7.45)
[2025-05-17 18:20] LABS: ALV-art Gradient 97.950 mmHg (0-20); Puncture Site Arterial Line
[2025-05-17] MEDS: Famotidine/PF 20 mg/2ml Vial SLOW IVP SCH (22:06)
[2025-05-18 04:34] LABS: ALT (SGPT) Less than 7 U/L (Less than 34); AST (SGOT) 14 U/L (11-34); Albumin 2.0 g/dL (3.1-4.5); Alkaline Phosphatase 66 U/L (40-110); Anion Gap 13 mmol/L (10-20); BUN (Urea Nitrogen) 25 mg/dL (9.8-20.1); Bilirubin, Total 0.9 mg/dL (0.3-1.2); Calc. Creatinine Clearance 38 mL/min (70-130); Calcium 7.3 mg/dL (7.8-10.44); Carbon Dioxide 19 mmol/L (23-31); Chloride 107 mmol/L (98-107); Globulin 3.0 g/dL (2.4-3.5); Glucose 93 mg/dL (80-115); Potassium 3.7 mmol/L (3.5-5.1); Sodium 135 mmol/L (136-145)
[2025-05-18 04:57] LABS: Hematocrit 26.9 % (36.0-47.0); Hemoglobin 8.3 g/dL (12.0-16.0); Mean Corpuscular Hemoglobin 25.5 pg (27.0-31.0); Mean Corpuscular Volume 82.8 fL (78.0-98.0); Platelet Count 101 10x3/uL (130-400); Red Blood Cell (RBC) Count 3.25 mill/uL (4.20-5.40); White Blood Cell (WBC) Count 21.50 10x3/uL (4.8-10.8)
[2025-05-18] MEDS: NOREPINEPHRINE 8 MG/250 ML-D5W 250 ML IVPB SCH (05:16)
[2025-05-18 05:30] LABS: Anisocytosis SLIGHT = 6-15 cells HPF (0-5); Burr Cells SLIGHT = 2-5 cells HPF (0-1); Macrocytosis SLIGHT = 6-15 cells HPF (0-5); Platelet Adequacy Comment Platelets Decreased; Smudge Cells 2.9 %
[2025-05-18] MEDS: Vasopressin In 0.9 % NaCl 100 ML IV SCH (05:33)
[2025-05-18] MEDS: Sodium Bicarb 50 MEQ/50 ML Abboject 8.4% SYRINGE IVP SCH (05:33)
[2025-05-18 09:01] LABS: Actual Bicarbonate (HCO3a) 19.5 mEq/L (22-28); Base Excess (BEa) -4.5 mEq/L (-2.0 to +3.0); CO2 Tension 31.4 mmHg (35.0-45.0); Calcium, Ionized (arterial) 1.09 mmol/L (1.12-1.30); Hematocrit-ABG 26 % (36.0-47.0); Hemoglobin (Hb) 8.8 g/dL (12.0-16.0); O2 Tension (PaO2), arterial 166.9 mmHg (> 80.0); Potassium - ABG Lab 3.76 mmol/L (3.70-5.30); Puncture Site Arterial Line; pH, Arterial 7.411 (7.35-7.45)
[2025-05-18 09:02] LABS: ALV-art Gradient 79.050 mmHg (0-20)
[2025-05-18] MEDS: Pantoprazole 40 MG VIAL IVP SCH (09:29)
[2025-05-18] MEDS: DC Sedation Protocol FS ONE (11:14)
[2025-05-18] MEDS: Electrolyte Replacement Protocol 1 EACH FS ONE (11:44)
[2025-05-18] MEDS: Magnesium Sulfate In Water 4 GM in Premix 1 BAG IVPB SCH (11:56)
[2025-05-18] MEDS: Albumin 25% 25 GM (100 mL) BOT IVPB SCH ×2 (11:56→17:19)
[2025-05-18 12:08] LABS: Troponin I 0.115 ng/mL (< 0.028)
[2025-05-18] MEDS: Magnesium Oxide 400 MG TAB PO SCH (15:50)
[2025-05-19 04:48] LABS: Anion Gap 14 mmol/L (10-20); BUN (Urea Nitrogen) 19 mg/dL (9.8-20.1); Calc. Creatinine Clearance 55 mL/min (70-130); Calcium 7.7 mg/dL (7.8-10.44); Carbon Dioxide 21 mmol/L (23-31); Chloride 111 mmol/L (98-107); Glucose 97 mg/dL (80-115); Magnesium 2.1 mg/dL (1.6-2.6); Potassium 3.5 mmol/L (3.5-5.1); Sodium 142 mmol/L (136-145)
[2025-05-19 05:00] LABS: Hematocrit 20.8 % (36.0-47.0); Hemoglobin 6.4 g/dL (12.0-16.0); Mean Corpuscular Hemoglobin 25.0 pg (27.0-31.0); Mean Corpuscular Volume 81.3 fL (78.0-98.0); Platelet Count 85 10x3/uL (130-400); Red Blood Cell (RBC) Count 2.56 mill/uL (4.20-5.40); White Blood Cell (WBC) Count 15.42 10x3/uL (4.8-10.8)
[2025-05-19 06:30] LABS: Anisocytosis SLIGHT = 6-15 cells HPF (0-5); Macrocytosis SLIGHT = 6-15 cells HPF (0-5); Platelet Adequacy Comment Significant Decrease; Polychromasia SLIGHT = 2-3 cells HPF (0-2); Smudge Cells 3.9 %
[2025-05-19 13:54] LABS: Hematocrit 21.6 % (36.0-47.0); Hemoglobin 6.8 g/dL (12.0-16.0); Platelet Count 99 10x3/uL (130-400)
[2025-05-19 19:37] LABS: Hematocrit 25.6 % (36.0-47.0); Hemoglobin 8.0 g/dL (12.0-16.0); Platelet Count 79 10x3/uL (130-400)
[2025-05-20 04:54] LABS: Hematocrit 25.5 % (36.0-47.0); Hemoglobin 8.2 g/dL (12.0-16.0); Mean Corpuscular Hemoglobin 26.0 pg (27.0-31.0); Mean Corpuscular Volume 81.0 fL (78.0-98.0); Platelet Count 78 10x3/uL (130-400); Red Blood Cell (RBC) Count 3.15 mill/uL (4.20-5.40); White Blood Cell (WBC) Count 9.18 10x3/uL (4.8-10.8)
[2025-05-20 05:23] LABS: Anion Gap 12 mmol/L (10-20); BUN (Urea Nitrogen) 14 mg/dL (9.8-20.1); Calc. Creatinine Clearance 67 mL/min (70-130); Calcium 7.5 mg/dL (7.8-10.44); Carbon Dioxide 23 mmol/L (23-31); Chloride 114 mmol/L (98-107); Glucose 77 mg/dL (80-115); Potassium 3.4 mmol/L (3.5-5.1); Sodium 146 mmol/L (136-145)
[2025-05-20 05:42] LABS: Anisocytosis SLIGHT = 6-15 cells HPF (0-5); Burr Cells SLIGHT = 2-5 cells HPF (0-1); Platelet Adequacy Comment Platelets Decreased; Polychromasia SLIGHT = 2-3 cells HPF (0-2); Smudge Cells 2.0 %
[2025-05-20] MEDS: Dextrose 5% w/ 20 mEq KCl 1,000 ML IV SCH (19:00)
[2025-05-21 05:10] LABS: Anion Gap 12 mmol/L (10-20); BUN (Urea Nitrogen) 11 mg/dL (9.8-20.1); Calc. Creatinine Clearance 79 mL/min (70-130); Calcium 7.3 mg/dL (7.8-10.44); Carbon Dioxide 23 mmol/L (23-31); Chloride 112 mmol/L (98-107); Glucose 133 mg/dL (80-115); Potassium 3.5 mmol/L (3.5-5.1); Sodium 143 mmol/L (136-145)
[2025-05-21 05:29] LABS: #Basophils 0.03 10x3/uL (0.0-0.2); #Eosinophils 0.18 10x3/uL (0.0-0.7); #Monocytes 1.48 10x3/uL (0.11-0.59); #Neutrophils 8.23 10x3/uL (1.40-6.50); %Basophils 0.3 % (0.0-1.0); %Eosinophils 1.6 % (0.0-10.0); %Lymphocytes 6.6 % (21.0-51.0); %Monocytes 13.4 % (0.0-10.0); %Neutrophils 74.6 % (42.0-75.0); Hematocrit 29.3 % (36.0-47.0); Hemoglobin 9.2 g/dL (12.0-16.0); Mean Corpuscular Hemoglobin 25.7 pg (27.0-31.0); Mean Corpuscular Volume 81.8 fL (78.0-98.0); Platelet Count 153 10x3/uL (130-400); Red Blood Cell (RBC) Count 3.58 mill/uL (4.20-5.40); White Blood Cell (WBC) Count 11.04 10x3/uL (4.8-10.8)
[2025-05-22 06:06] LABS: Hematocrit 31.6 % (36.0-47.0); Hemoglobin 10.1 g/dL (12.0-16.0); Mean Corpuscular Hemoglobin 25.8 pg (27.0-31.0); Mean Corpuscular Volume 80.8 fL (78.0-98.0); Platelet Count 186 10x3/uL (130-400); Red Blood Cell (RBC) Count 3.91 mill/uL (4.20-5.40); White Blood Cell (WBC) Count 11.71 10x3/uL (4.8-10.8)
[2025-05-22 06:23] LABS: Anion Gap 11 mmol/L (10-20); BUN (Urea Nitrogen) 8 mg/dL (9.8-20.1); Calc. Creatinine Clearance 88 mL/min (70-130); Calcium 7.5 mg/dL (7.8-10.44); Carbon Dioxide 24 mmol/L (23-31); Chloride 110 mmol/L (98-107); Glucose 112 mg/dL (80-115); Potassium 3.5 mmol/L (3.5-5.1); Sodium 141 mmol/L (136-145)
[2025-05-22 06:42] LABS: Burr Cells MODERATE= 6-15 cells HPF (0-1); Platelet Adequacy Comment Platelets Decreased; Polychromasia SLIGHT = 2-3 cells HPF (0-2); Smudge Cells 2.9 %
[2025-05-22] MEDS ORDERED: GASTROGRAFIN 30 ML BOT ONE (10:35)
[2025-05-22] MEDS ORDERED: MD-Gastroview 120 ML BOT ONE (10:35)
[2025-05-22] MEDS: Mupirocin 1 GM TUBE NASAL DECOLONIZATION NASAL SCH (22:35)
[2025-05-23] MEDS: Heparin 5,000 UNITS/ML VIAL SC SCH (08:53)
[2025-05-23] MEDS: Pantoprazole 40 MG DR.TAB PO SCH (08:53)
[2025-05-23] MEDS: HYDROcodone/Acetaminophen 5/325 mg Tablet PO PRN (14:42)
[2025-05-24] MEDS: Ondansetron PF 4 MG/2 ML Vial IVP PRN (01:30)
[2025-05-24 06:52] LABS: #Basophils 0.09 10x3/uL (0.0-0.2); #Eosinophils 0.22 10x3/uL (0.0-0.7); #Monocytes 1.51 10x3/uL (0.11-0.59); #Neutrophils 12.15 10x3/uL (1.40-6.50); %Basophils 0.6 % (0.0-1.0); %Eosinophils 1.4 % (0.0-10.0); %Lymphocytes 8.9 % (21.0-51.0); %Monocytes 9.3 % (0.0-10.0); %Neutrophils 74.9 % (42.0-75.0); Hematocrit 34.9 % (36.0-47.0); Hemoglobin 11.0 g/dL (12.0-16.0); Mean Corpuscular Hemoglobin 25.5 pg (27.0-31.0); Mean Corpuscular Volume 80.8 fL (78.0-98.0); Platelet Count 306 10x3/uL (130-400); Red Blood Cell (RBC) Count 4.32 mill/uL (4.20-5.40); White Blood Cell (WBC) Count 16.21 10x3/uL (4.8-10.8)
[2025-05-24 07:35] LABS: Anion Gap 9 mmol/L (10-20); BUN (Urea Nitrogen) 6 mg/dL (9.8-20.1); Calc. Creatinine Clearance 93 mL/min (70-130); Calcium 7.6 mg/dL (7.8-10.44); Carbon Dioxide 22 mmol/L (23-31); Chloride 109 mmol/L (98-107); Glucose 142 mg/dL (80-115); Potassium 3.3 mmol/L (3.5-5.1); Sodium 137 mmol/L (136-145)
[2025-05-24] MEDS ORDERED: Iopamidol-370 76% 500 ML MDV (1 ML CHARGE) ONE (11:22)
[2025-05-25 09:11] LABS: #Basophils 0.08 10x3/uL (0.0-0.2); #Eosinophils 0.39 10x3/uL (0.0-0.7); #Monocytes 1.51 10x3/uL (0.11-0.59); #Neutrophils 13.42 10x3/uL (1.40-6.50); %Basophils 0.5 % (0.0-1.0); %Eosinophils 2.2 % (0.0-10.0); %Lymphocytes 9.5 % (21.0-51.0); %Monocytes 8.5 % (0.0-10.0); %Neutrophils 75.7 % (42.0-75.0); Hematocrit 32.4 % (36.0-47.0); Hemoglobin 10.2 g/dL (12.0-16.0); Mean Corpuscular Hemoglobin 25.6 pg (27.0-31.0); Mean Corpuscular Volume 81.2 fL (78.0-98.0); Platelet Count 326 10x3/uL (130-400); Red Blood Cell (RBC) Count 3.99 mill/uL (4.20-5.40); White Blood Cell (WBC) Count 17.71 10x3/uL (4.8-10.8)
[2025-05-25 09:24] LABS: Anion Gap 12 mmol/L (10-20); BUN (Urea Nitrogen) 7 mg/dL (9.8-20.1); Calc. Creatinine Clearance 88 mL/min (70-130); Calcium 7.2 mg/dL (7.8-10.44); Carbon Dioxide 21 mmol/L (23-31); Chloride 108 mmol/L (98-107); Glucose 116 mg/dL (80-115); Potassium 3.3 mmol/L (3.5-5.1); Sodium 138 mmol/L (136-145)
[2025-05-25 11:39] LABS: Fungus Culture Final report (.); Fungus Culture Result 1 Candida glabrata (.)
[2025-05-26 00:41] LABS: Bacteria/HPF 1+ HPF (None Seen); CAUTI Indications for Culture Dysuria,urgency,freq; Glucose, Urine (Dipstick) Normal (Negative); Leukocyte 500 Leu/uL (Negative); Protein, Urine (Dipstick) 20 mg/dL (Neg-Trace); Specific Gravity, Urine 1.041 (1.002-1.036); WBC/HPF Greater than 50 HPF (0-3)
[2025-05-26 00:42] LABS: Urine Culture Reflex Yes Yes
[2025-05-26 08:34] LABS: #Basophils 0.08 10x3/uL (0.0-0.2); #Eosinophils 0.39 10x3/uL (0.0-0.7); #Monocytes 1.50 10x3/uL (0.11-0.59); #Neutrophils 11.88 10x3/uL (1.40-6.50); %Basophils 0.5 % (0.0-1.0); %Eosinophils 2.4 % (0.0-10.0); %Lymphocytes 10.6 % (21.0-51.0); %Monocytes 9.3 % (0.0-10.0); %Neutrophils 74.1 % (42.0-75.0); Hematocrit 32.5 % (36.0-47.0); Hemoglobin 10.1 g/dL (12.0-16.0); Mean Corpuscular Hemoglobin 26.0 pg (27.0-31.0); Mean Corpuscular Volume 83.8 fL (78.0-98.0); Platelet Count 336 10x3/uL (130-400); Red Blood Cell (RBC) Count 3.88 mill/uL (4.20-5.40); White Blood Cell (WBC) Count 16.06 10x3/uL (4.8-10.8)
[2025-05-26 08:54] LABS: Anion Gap 12 mmol/L (10-20); BUN (Urea Nitrogen) 7 mg/dL (9.8-20.1); Calc. Creatinine Clearance 85 mL/min (70-130); Calcium 7.2 mg/dL (7.8-10.44); Carbon Dioxide 19 mmol/L (23-31); Chloride 108 mmol/L (98-107); Glucose 120 mg/dL (80-115); Potassium 3.0 mmol/L (3.5-5.1); Sodium 136 mmol/L (136-145)
[2025-05-27 06:27] LABS: #Basophils 0.07 10x3/uL (0.0-0.2); #Eosinophils 0.19 10x3/uL (0.0-0.7); #Monocytes 1.08 10x3/uL (0.11-0.59); #Neutrophils 9.11 10x3/uL (1.40-6.50); %Basophils 0.6 % (0.0-1.0); %Eosinophils 1.5 % (0.0-10.0); %Lymphocytes 12.9 % (21.0-51.0); %Monocytes 8.8 % (0.0-10.0); %Neutrophils 73.9 % (42.0-75.0); Hematocrit 34.6 % (36.0-47.0); Hemoglobin 10.4 g/dL (12.0-16.0); Mean Corpuscular Hemoglobin 25.3 pg (27.0-31.0); Mean Corpuscular Volume 84.2 fL (78.0-98.0); Platelet Count 308 10x3/uL (130-400); Red Blood Cell (RBC) Count 4.11 mill/uL (4.20-5.40); White Blood Cell (WBC) Count 12.32 10x3/uL (4.8-10.8)
[2025-05-27 06:51] LABS: Anion Gap 15 mmol/L (10-20); BUN (Urea Nitrogen) 7 mg/dL (9.8-20.1); Calc. Creatinine Clearance 86 mL/min (70-130); Calcium 7.4 mg/dL (7.8-10.44); Carbon Dioxide 18 mmol/L (23-31); Chloride 109 mmol/L (98-107); Glucose 107 mg/dL (80-115); Potassium 4.0 mmol/L (3.5-5.1); Sodium 138 mmol/L (136-145)
[2025-05-27] MEDS: VANCOMYCIN 2 GRAM/400 ML BAG 2 GM in Premix 1 BAG IVPB SCH (13:37)
[2025-05-27] MEDS: Heparin 5,000 UNITS/ML VIAL SC SCH (13:40)
[2025-05-27] MEDS ORDERED: Vancomycin 1 GM in Premix 1 BAG IVPB SCH (21:00)
[2025-05-28 05:37] LABS: #Basophils 0.16 10x3/uL (0.0-0.2); #Eosinophils 0.26 10x3/uL (0.0-0.7); #Monocytes 1.87 10x3/uL (0.11-0.59); #Neutrophils 13.98 10x3/uL (1.40-6.50); %Basophils 0.9 % (0.0-1.0); %Eosinophils 1.4 % (0.0-10.0); %Lymphocytes 12.1 % (21.0-51.0); %Monocytes 9.9 % (0.0-10.0); %Neutrophils 74.3 % (42.0-75.0); Hematocrit 33.4 % (36.0-47.0); Hemoglobin 10.2 g/dL (12.0-16.0); Mean Corpuscular Hemoglobin 25.6 pg (27.0-31.0); Mean Corpuscular Volume 83.7 fL (78.0-98.0); Platelet Count 407 10x3/uL (130-400); Red Blood Cell (RBC) Count 3.99 mill/uL (4.20-5.40); White Blood Cell (WBC) Count 18.81 10x3/uL (4.8-10.8)
[2025-05-28 05:49] LABS: Anion Gap 11 mmol/L (10-20); BUN (Urea Nitrogen) 8 mg/dL (9.8-20.1); Calc. Creatinine Clearance 102 mL/min (70-130); Calcium 7.5 mg/dL (7.8-10.44); Carbon Dioxide 19 mmol/L (23-31); Chloride 111 mmol/L (98-107); Glucose 105 mg/dL (80-115); Potassium 3.9 mmol/L (3.5-5.1); Sodium 137 mmol/L (136-145); Vancomycin, Random 19.4 ug/mL (See Comment)
[2025-05-28 08:51] LABS: ALT (SGPT) Less than 7 U/L (Less than 34); AST (SGOT) 15 U/L (11-34); Albumin 1.9 g/dL (3.1-4.5); Alkaline Phosphatase 71 U/L (40-110); Bilirubin, Direct 0.4 mg/dL (0.1-0.3); Bilirubin, Total 0.7 mg/dL (0.3-1.2)
[2025-05-28] MEDS: Aspirin 81 mg Enteric Coated Tablet PO SCH (09:50)
[2025-05-28] MEDS ORDERED: Vancomycin (BATCH) 1.75 GM in Premix 1 BAG IVPB SCH (12:00)
[2025-05-28] MEDS: Vancomycin 1.25 GM / NS 250 ML VIAL-2-BAG IVPB SCH (12:54)
[2025-05-28 16:55] LABS: RBC Count-Automated (BF) 148 /cu.mm; WBC/Nucleated-Auto (BF) 1950 /cu.mm
[2025-05-28 17:21] LABS: BF Segmented Neutrophils 88 %; Cell Count Non Hematic 1 %
[2025-05-29 08:04] LABS: #Basophils 0.10 10x3/uL (0.0-0.2); #Eosinophils 0.31 10x3/uL (0.0-0.7); #Monocytes 1.69 10x3/uL (0.11-0.59); #Neutrophils 8.78 10x3/uL (1.40-6.50); %Basophils 0.8 % (0.0-1.0); %Eosinophils 2.4 % (0.0-10.0); %Lymphocytes 14.3 % (21.0-51.0); %Monocytes 13.2 % (0.0-10.0); %Neutrophils 68.3 % (42.0-75.0); Hematocrit 32.1 % (36.0-47.0); Hemoglobin 9.9 g/dL (12.0-16.0); Mean Corpuscular Hemoglobin 25.7 pg (27.0-31.0); Mean Corpuscular Volume 83.4 fL (78.0-98.0); Platelet Count 423 10x3/uL (130-400); Red Blood Cell (RBC) Count 3.85 mill/uL (4.20-5.40); White Blood Cell (WBC) Count 12.84 10x3/uL (4.8-10.8)
[2025-05-29] MEDS ORDERED: Iopamidol-370 76% 500 ML MDV (1 ML CHARGE) ONE (11:05)
[2025-05-30 05:16] LABS: INR-International Normal Ratio 1.5; Prothrombin Time 18.1 sec (12.0-14.7)
[2025-05-30 05:22] LABS: Calc. Creatinine Clearance 93.0 mL/min (70-130)
[2025-05-30 09:16] LABS: #Basophils 0.12 10x3/uL (0.0-0.2); #Eosinophils 0.32 10x3/uL (0.0-0.7); #Monocytes 1.38 10x3/uL (0.11-0.59); #Neutrophils 7.62 10x3/uL (1.40-6.50); %Basophils 1.1 % (0.0-1.0); %Eosinophils 2.8 % (0.0-10.0); %Lymphocytes 15.4 % (21.0-51.0); %Monocytes 12.2 % (0.0-10.0); %Neutrophils 67.4 % (42.0-75.0); Hematocrit 29.8 % (36.0-47.0); Hemoglobin 9.4 g/dL (12.0-16.0); Mean Corpuscular Hemoglobin 25.9 pg (27.0-31.0); Mean Corpuscular Volume 82.1 fL (78.0-98.0); Platelet Count 443 10x3/uL (130-400); Red Blood Cell (RBC) Count 3.63 mill/uL (4.20-5.40); White Blood Cell (WBC) Count 11.31 10x3/uL (4.8-10.8)
[2025-05-30 09:33] LABS: Anion Gap 10 mmol/L (10-20); BUN (Urea Nitrogen) 8 mg/dL (9.8-20.1); Calc. Creatinine Clearance 97 mL/min (70-130); Calcium 7.5 mg/dL (7.8-10.44); Carbon Dioxide 22 mmol/L (23-31); Chloride 109 mmol/L (98-107); Glucose 85 mg/dL (80-115); Potassium 3.9 mmol/L (3.5-5.1); Sodium 137 mmol/L (136-145)
[2025-05-30] MEDS ORDERED: Lidocaine 1% w/Epinephrine 1:100K 20 ML VIAL ONE (11:38)
[2025-05-30] MEDS ORDERED: Sodium Bicarbonate 2.5 MEQ/5 ML SDV ONE (11:38)
[2025-05-30 13:58] VITALS: BMI 35.0
[2025-05-31 05:41] LABS: #Basophils 0.08 10x3/uL (0.0-0.2); #Eosinophils 0.24 10x3/uL (0.0-0.7); #Monocytes 1.06 10x3/uL (0.11-0.59); #Neutrophils 5.58 10x3/uL (1.40-6.50); %Basophils 0.9 % (0.0-1.0); %Eosinophils 2.8 % (0.0-10.0); %Lymphocytes 17.4 % (21.0-51.0); %Monocytes 12.4 % (0.0-10.0); %Neutrophils 65.4 % (42.0-75.0); Hematocrit 28.2 % (36.0-47.0); Hemoglobin 8.7 g/dL (12.0-16.0); Mean Corpuscular Hemoglobin 25.4 pg (27.0-31.0); Mean Corpuscular Volume 82.2 fL (78.0-98.0); Platelet Count 439 10x3/uL (130-400); Red Blood Cell (RBC) Count 3.43 mill/uL (4.20-5.40); White Blood Cell (WBC) Count 8.53 10x3/uL (4.8-10.8)
[2025-05-31 06:04] LABS: Anion Gap 10 mmol/L (10-20); BUN (Urea Nitrogen) 8 mg/dL (9.8-20.1); Calc. Creatinine Clearance 92 mL/min (70-130); Calcium 7.5 mg/dL (7.8-10.44); Carbon Dioxide 22 mmol/L (23-31); Chloride 109 mmol/L (98-107); Glucose 101 mg/dL (80-115); Potassium 3.4 mmol/L (3.5-5.1); Sodium 138 mmol/L (136-145)
[2025-05-31 06:46] VITALS: BMI 35.0
[2025-05-31] MEDS: Acetaminophen 325 MG TAB PO PRN (18:37)
[2025-05-31] MEDS: Carvedilol 3.125 MG TAB PO SCH (21:00)
[2025-06-01 04:30] LABS: #Basophils 0.07 10x3/uL (0.0-0.2); #Eosinophils 0.29 10x3/uL (0.0-0.7); #Monocytes 0.94 10x3/uL (0.11-0.59); #Neutrophils 5.31 10x3/uL (1.40-6.50); %Basophils 0.9 % (0.0-1.0); %Eosinophils 3.7 % (0.0-10.0); %Lymphocytes 15.8 % (21.0-51.0); %Monocytes 11.9 % (0.0-10.0); %Neutrophils 66.9 % (42.0-75.0); Hematocrit 27.9 % (36.0-47.0); Hemoglobin 8.7 g/dL (12.0-16.0); Mean Corpuscular Hemoglobin 25.6 pg (27.0-31.0); Mean Corpuscular Volume 82.1 fL (78.0-98.0); Platelet Count 414 10x3/uL (130-400); Red Blood Cell (RBC) Count 3.40 mill/uL (4.20-5.40); White Blood Cell (WBC) Count 7.92 10x3/uL (4.8-10.8)
[2025-06-01 04:41] LABS: Anion Gap 12 mmol/L (10-20); BUN (Urea Nitrogen) 9 mg/dL (9.8-20.1); Calc. Creatinine Clearance 103 mL/min (70-130); Calcium 7.3 mg/dL (7.8-10.44); Carbon Dioxide 20 mmol/L (23-31); Chloride 108 mmol/L (98-107); Glucose 158 mg/dL (80-115); Potassium 3.5 mmol/L (3.5-5.1); Sodium 136 mmol/L (136-145)
[2025-06-01 11:35] VITALS: BP 106/59; TEMP 98.6
== END 2025-06-01 13:32 | disposition home or self-care (01) | DRG 853 ==
LOC: ERS 10:20 → CCU 13:12 → SURG A 05-20 13:54
PROVIDERS: ADMIT Hospitalist; ATTEND Internal Medicine
PROC: 3E03329 Introduction of Other Anti-infective into Peripheral Vein, Percutaneous Approach (ICD-10-PCS; principal; 2025-05-17)
PROC: 3E033XZ Introduction of Vasopressor into Peripheral Vein, Percutaneous Approach (ICD-10-PCS; 2025-05-17)
PROC: 0DJ60ZZ Inspection of Stomach, Open Approach (ICD-10-PCS; 2025-05-17)
PROC: 0DQ60ZZ Repair Stomach, Open Approach (ICD-10-PCS; 2025-05-17)
DX: A41.9 Sepsis, unspecified organism (principal); J95.821 Acute postprocedural respiratory failure; K63.1 Perforation of intestine (nontraumatic); R65.21 Severe sepsis with septic shock; I69.351 Hemiplegia and hemiparesis following cerebral infarction affecting right dominant side; N17.9 Acute kidney failure, unspecified; I5A Non-ischemic myocardial injury (non-traumatic); D62 Acute posthemorrhagic anemia; I25.10 Atherosclerotic heart disease of native coronary artery without angina pectoris; G89.4 Chronic pain syndrome; E83.42 Hypomagnesemia; E03.9 Hypothyroidism, unspecified; I11.0 Hypertensive heart disease with heart failure; D69.6 Thrombocytopenia, unspecified; Z95.5 Presence of coronary angioplasty implant and graft; Z79.899 Other long term (current) drug therapy; Z99.3 Dependence on wheelchair; Z86.711 Personal history of pulmonary embolism; Z79.01 Long term (current) use of anticoagulants
CPT/HCPCS: 36415; 36416; 36430; 36556; 49406; 71045; 71275; 72192; 74018; 74174; 74177; 74240; 77002; 80048; 80053; 80076; 80202; 81001; 81003; 81015; 82533; 82565; 82805; 83605; 83690; 83735; 83880; 84484; 85025; 85060; 85610; 85730; 86850; 86900; 86901; 87040; 87070; 87076; 87077; 87086; 87102; 87149; 87186; 87205; 87206; 87324; 87449; 89051; 93005; 94002; 94003; 94640; 96361; 96365; 96366; 96375; 99292; J0169; J0665; J1308; J1644; J2248; J2250; J2270; J2272; J2405; J2470; J2543; J2550; J3010; J3373; J3375; J3475; J3480; J7050; J7120; J7620; P9016; P9047; P9059; Q9963; Q9967